=== PATIENT | female | born 1935 | race African-American/Black ===

== ENCOUNTER 2017-03-20 06:43 | Day surgery (SDC) | payer MEDICARE, MEDICAID ==
[~2017-03-20] VITALS: Ht 152.4 cm; Wt 72.7 kg
[~2017-03-20 06:43] MED LIST: ASPI-996 PO; ATOR40TA71 PO; BUPIVACAINE HCL/PF 0.75% 10 ML VIAL INJ ONE; CARV6 PO; CHOL20002 PO; DICLOFENAC SODIUM 0.1% 2.5 ML OPHTHALMIC SOLUTION OD ONE; DICLOFENAC SODIUM 0.1% 2.5 ML OPHTHALMIC SOLUTION ONE; DOCU250C91 PO; EPINEPHrine 1:1,000 [1 MG/ML] AMP IM ONE; ESMOLOL HCL 10 MG/ML 10 ML VIAL IVP ONE; FERR142T6 PO; FentaNYL CITRATE-PF 100 MCG/2 ML VIAL IVP ONE; GABA-531 PO; HYALURONATE SOD/CHONDROITIN SOD 0.5 ML VIAL IO ONE; HYALURONATE SODIUM 12 MG/ML 0.8 ML SYRINGE IO ONE; LABETALOL HCL 5 MG/ML 20 ML VIAL IVP ONE; LIDOCAINE HCL/PF 1% 2 ML VIAL INJ ONE; METO-323 PO; MIDAZOLAM HCL 2 MG/2 ML VIAL IVP ONE; MONT10TA21 PO; MOXIFLOXACIN HCL 0.5% 3 ML OPHTHALMIC SOLUTION OD ONE; MOXIFLOXACIN HCL 0.5% 3 ML OPHTHALMIC SOLUTION ONE; MULT1TAB70 PO; OXYC-158 PO; PANT40TA25 PO; PHENYLEPHRINE HCL 2.5% 2 ML OPHTHALMIC SOLUTION OD SCH; PHENYLEPHRINE HCL 2.5% 2 ML OPHTHALMIC SOLUTION ONE; POLY17PO6 PO; POVIDONE-IODINE 10% 15 ML SOLUTION UD TP ONE; RINGERS SOLUTION,LACTATED 500 ML IV ONE; SENN-30 PO; SPIR25TA4 PO; TRAM50TA4 PO; TROPICAMIDE 1% 2 ML OPHTHALMIC SOLUTION OD SCH; TROPICAMIDE 1% 2 ML OPHTHALMIC SOLUTION ONE; VALS160T2 PO
[2017-03-20] MEDS ORDERED: CYCLOPENTOLATE HCL 1% 2 ML OPHTHALMIC SOLUTION ONE (07:42)
[2017-03-20] MEDS ORDERED: PrednisoLONE ACETATE 1% 5 ML OPHTHALMIC SUSPENSION ONE (07:42)
[2017-03-20] MEDS ORDERED: PROPARACAINE HCL 0.5% 15 ML OPHTHALMIC SOLUTION OD ONE (07:45)
[2017-03-20] MEDS: MOXIFLOXACIN HCL 0.5% 3 ML OPHTHALMIC SOLUTION OD SCH ×3 (07:50→08:02)
[2017-03-20] MEDS: KETOROLAC TROMETHAMINE 0.5% 5 ML OPHTHALMIC SOLUTION OD SCH ×3 (07:50→08:02)
[2017-03-20] MEDS: CYCLOPENTOLATE HCL 1% 2 ML OPHTHALMIC SOLUTION OD SCH ×3 (07:51→08:02)
[2017-03-20] MEDS: PHENYLEPHRINE HCL 2.5% 2 ML OPHTHALMIC SOLUTION OD SCH ×3 (07:51→08:03)
[2017-03-20] MEDS: PrednisoLONE ACETATE 1% 5 ML OPHTHALMIC SUSPENSION OD SCH ×3 (07:57→08:07)
== END 2017-03-20 11:15 | disposition home or self-care (01) ==
LOC: SURGERY 06:43
PROVIDERS: ATTEND Ophthalmology
DX: H26.20 Unspecified complicated cataract (principal); M19.90 Unspecified osteoarthritis, unspecified site; I50.9 Heart failure, unspecified; J45.909 Unspecified asthma, uncomplicated; H40.9 Unspecified glaucoma; M54.9 Dorsalgia, unspecified; K59.00 Constipation, unspecified; I10 Essential (primary) hypertension; G89.29 Other chronic pain; F32.9 Major depressive disorder, single episode, unspecified; M54.2 Cervicalgia; E66.3 Overweight; Z88.0 Allergy status to penicillin; Z88.2 Allergy status to sulfonamides; Z88.1 Allergy status to other antibiotic agents; Z90.710 Acquired absence of both cervix and uterus; Z87.891 Personal history of nicotine dependence
CPT/HCPCS: 66982; 93005; C1780; J0171; J2250; J3010; J3490 ×5; J7120

== ENCOUNTER 2018-07-10 18:00 | Inpatient (IN) | payer MEDICARE, MEDICAID ==
[~2018-07-10] VITALS: Ht 152.4 cm; Wt 68.0 kg
[~2018-07-10 18:00] MED LIST changes: -ASPI-996 PO; +ASPI81 PO; -BUPIVACAINE HCL/PF 0.75% 10 ML VIAL INJ ONE; +BUSP5TAB20 PO; +CARV3 PO; -CARV6 PO; -CHOL20002 PO; +DICL2100G TP; -DICLOFENAC SODIUM 0.1% 2.5 ML OPHTHALMIC SOLUTION OD ONE; -DICLOFENAC SODIUM 0.1% 2.5 ML OPHTHALMIC SOLUTION ONE; -DOCU250C91 PO; -EPINEPHrine 1:1,000 [1 MG/ML] AMP IM ONE; +ESCI20TA PO; -ESMOLOL HCL 10 MG/ML 10 ML VIAL IVP ONE; -FERR142T6 PO; +FURO40 PO; -FentaNYL CITRATE-PF 100 MCG/2 ML VIAL IVP ONE; -GABA-531 PO; +GUAIFDM PO; -HYALURONATE SOD/CHONDROITIN SOD 0.5 ML VIAL IO ONE; -HYALURONATE SODIUM 12 MG/ML 0.8 ML SYRINGE IO ONE; +HYDR-309 PO; -LABETALOL HCL 5 MG/ML 20 ML VIAL IVP ONE; +LACT30L PO; -LIDOCAINE HCL/PF 1% 2 ML VIAL INJ ONE; +LORA10TA7 PO; +LOSA50TA25 PO; -METO-323 PO; -MIDAZOLAM HCL 2 MG/2 ML VIAL IVP ONE; -MONT10TA21 PO; -MOXIFLOXACIN HCL 0.5% 3 ML OPHTHALMIC SOLUTION OD ONE; -MOXIFLOXACIN HCL 0.5% 3 ML OPHTHALMIC SOLUTION ONE; -MULT1TAB70 PO; -OXYC-158 PO; -PANT40TA25 PO; -PHENYLEPHRINE HCL 2.5% 2 ML OPHTHALMIC SOLUTION OD SCH; -PHENYLEPHRINE HCL 2.5% 2 ML OPHTHALMIC SOLUTION ONE; -POLY17PO6 PO; -POVIDONE-IODINE 10% 15 ML SOLUTION UD TP ONE; -RINGERS SOLUTION,LACTATED 500 ML IV ONE; +SENN-175 PO; -SENN-30 PO; -SPIR25TA4 PO; +SPIR25TA6 PO; -TRAM50TA4 PO; -TROPICAMIDE 1% 2 ML OPHTHALMIC SOLUTION OD SCH; -TROPICAMIDE 1% 2 ML OPHTHALMIC SOLUTION ONE; -VALS160T2 PO
[2018-07-10 18:30] VITALS: BP 168/97
[2018-07-10] MEDS ORDERED: ONDANSETRON HCL 4 MG TABLET PO PRN (19:45)
[2018-07-10] MEDS ORDERED: SODIUM CHLORIDE 0.9% 250 ML IV ONE (20:05)
[2018-07-10] MEDS: IPRATROPIUM BROMIDE 0.5 MG/2.5 ML NEB SOLUTION NEB SCH (20:17)
[2018-07-10] MEDS: ALBUTEROL SULFATE 2.5 MG/0.5 ML NEB SOLUTION NEB SCH (20:17)
[2018-07-10] MEDS ORDERED: DOCUSATE SODIUM 100 MG CAPSULE PO SCH (21:00)
[2018-07-10] MEDS: LEVOFLOXACIN 250 MG/D5% WATER 50 ML IV SCH (21:05)
[2018-07-10] MEDS: ACETAMINOPHEN 325 MG TABLET PO PRN (21:06)
[2018-07-10] MEDS: ATORVASTATIN CALCIUM 40 MG TABLET PO SCH (21:06)
[2018-07-10] MEDS: MONTELUKAST SODIUM 10 MG TABLET PO SCH (21:06)
[2018-07-10] MEDS: CARVEDILOL 6.25 MG TABLET PO SCH (21:07)
[2018-07-10] MEDS: DOCUSATE SODIUM 250 MG CAPSULE PO SCH (21:07)
[2018-07-10 22:45] VITALS: BP 147/97
[2018-07-10] MEDS: ZOLPIDEM TARTRATE 5 MG TABLET PO PRN (23:32)
[2018-07-10] MEDS: 0.9% SODIUM CHLORIDE 10 ML SYRINGE IVP SCH (23:34)
[2018-07-10] MEDS ORDERED: PNEUMOCOCCAL VACCINE POLYVALENT 0.5 ML VIAL [PPSV23] IM ONE (23:45)
[2018-07-10 23:46] VITALS: BP 141/98
[2018-07-11] MEDS: ALBUTEROL SULFATE 2.5 MG/0.5 ML NEB SOLUTION NEB SCH ×4 (01:46→19:45)
[2018-07-11] MEDS: IPRATROPIUM BROMIDE 0.5 MG/2.5 ML NEB SOLUTION NEB SCH ×4 (01:46→19:45)
[2018-07-11] MEDS: DOCUSATE SODIUM 283 MG/5 ML MINI-ENEMA PR PRN (05:12)
[2018-07-11] MEDS: PANTOPRAZOLE SODIUM 40 MG DR TABLET PO SCH (07:54)
[2018-07-11 08:12] VITALS: BP 179/92
[2018-07-11] MEDS: POTASSIUM CHLORIDE 20 MEQ ER TABLET PO SCH (08:12)
[2018-07-11] MEDS: SPIRONOLACTONE 25 MG TABLET PO SCH (08:12)
[2018-07-11] MEDS: TraMADol HCL 50 MG TABLET PO SCH (08:12)
[2018-07-11] MEDS: VALSARTAN 160 MG TABLET PO SCH (08:12)
[2018-07-11] MEDS: ASPIRIN 325 MG EC TABLET PO SCH (08:13)
[2018-07-11] MEDS: DOCUSATE SODIUM 250 MG CAPSULE PO SCH ×2 (08:13→20:44)
[2018-07-11] MEDS: CARVEDILOL 6.25 MG TABLET PO SCH ×2 (08:13→20:44)
[2018-07-11] MEDS: FERROUS SULFATE 325 MG EC TABLET PO SCH (08:13)
[2018-07-11 08:34] LABS: BASOPHILS % (AUTO) 0.7 % (0.0-2.0); EOSINOPHILS % (AUTO) 8.2 % (1.0-6.0); HEMATOCRIT 39.5 % (36-46); HEMOGLOBIN 12.7 g/dL (12.0-16.0); LYMPHOCYTES # (AUTO) 0.9 K/uL (1.0-4.8); LYMPHOCYTES % (AUTO) 10.7 % (22.0-44.0); MEAN CORPUSCULAR HEMOGLOBIN 26.7 pg (26.0-34.0); MEAN CORPUSCULAR HGB CONC 32.1 G/dL (31.0-37.0); MEAN CORPUSCULAR VOLUME 83 fL (80-100); MONOCYTES # (AUTO) 0.7 K/uL (0.1-1.0); MONOCYTES % (AUTO) 9.3 % (2.0-9.0); NEUTROPHILS # (AUTO) 5.7 K/uL (1.8-7.7); NEUTROPHILS % (AUTO) 71.1 % (40.0-70.0); PLATELET COUNT (AUTO) 102 K/uL (150-450); RED BLOOD CELL COUNT(AUTO) 4.75 MIL/uL (4.00-5.20)
[2018-07-11 08:48] LABS: ALANINE AMINOTRANSFERASE 19 U/L (12-78); ALBUMIN 2.6 g/dL (3.4-5.0); ALKALINE PHOSPHATASE 91 U/L (46-116); ANION GAP 3 mmol/L (8-16); ASPARTATE AMINOTRANSFERASE 20 U/L (15-37); BILIRUBIN,TOTAL 0.5 mg/dL (0.1-1.0); CARBON DIOXIDE 34 mmol/L (22-29); CHLORIDE 103 mmol/L (98-107); CREATININE 0.93 mg/dL (0.60-1.30); GLUCOSE,RANDOM 140 mg/dL (70-110); POTASSIUM 4.1 mmol/L (3.5-5.1); SODIUM SERUM 140 mmol/L (136-145); TOTAL PROTEIN, SERUM 6.4 g/dL (6.4-8.2); UREA NITROGEN, BLOOD 24 mg/dL (7-18)
[2018-07-11 08:52] LABS: GLOMERULAR FILTR. RATE CALC > 60 mL/min (>60)
[2018-07-11] MEDS ORDERED: TraMADol HCL 50 MG TABLET PO SCH (09:00)
[2018-07-11] MEDS ORDERED: CHOLECALCIFEROL (VIT D3) 1,000 UNITS TABLET PO SCH (09:00)
[2018-07-11] MEDS: 0.9% SODIUM CHLORIDE 10 ML SYRINGE IVP SCH ×3 (09:12→23:45)
[2018-07-11 11:00] VITALS: BP 147/86
[2018-07-11] MEDS ORDERED: MAGNESIUM CITRATE 300 ML ORAL SOLUTION PO ONE (12:45)
[2018-07-11] MEDS: CHOLECALCIFEROL (VIT D3) 1,000 UNITS TABLET PO SCH (13:03)
[2018-07-11] MEDS: DICLOFENAC SODIUM 1% 100 GM GEL [4GM] TP SCH ×2 (14:19→20:44)
[2018-07-11 15:14] VITALS: BP 142/75
[2018-07-11 17:28] LABS: APPEARANCE,URINE CLOUDY (CLEAR); BILIRUBIN,URINE NEGATIVE (NEGATIVE); GLUCOSE, URINE (UA) NEGATIVE (NEGATIVE); KETONES,URINE NEGATIVE (NEGATIVE); LEUKOCYTE ESTERASE ,URINE NEGATIVE (NEGATIVE); NITRATE,URINE NEGATIVE (NEGATIVE); OCCULT BLOOD,URINE NEGATIVE (NEGATIVE); PH,URINE 5.5 (5.0-8.0); PROTEIN,URINE NEGATIVE (NEGATIVE); UROBILINOGEN,URINE 0.2 mg/dL (<=1.0)
[2018-07-11 18:07] LABS: BACTERIA,URINE Few /HPF (None Seen); RBC,URINE 0-2 /HPF (0-2); WBC,URINE None Seen /HPF (0-5)
[2018-07-11 18:08] LABS: SQUAMOUS EPITHELIAL CELL,UR Few /LPF (None Seen)
[2018-07-11] MEDS: LEVOFLOXACIN 250 MG/D5% WATER 50 ML IV SCH (19:12)
[2018-07-11 20:40] VITALS: BP 132/85
[2018-07-11] MEDS: SENNA 187 MG TABLET PO SCH (20:44)
[2018-07-11] MEDS: ATORVASTATIN CALCIUM 40 MG TABLET PO SCH (20:44)
[2018-07-11] MEDS: MONTELUKAST SODIUM 10 MG TABLET PO SCH (20:44)
[2018-07-12 01:13] VITALS: BP 130/77
[2018-07-12] MEDS: ALBUTEROL SULFATE 2.5 MG/0.5 ML NEB SOLUTION NEB SCH ×4 (01:36→20:12)
[2018-07-12] MEDS: IPRATROPIUM BROMIDE 0.5 MG/2.5 ML NEB SOLUTION NEB SCH ×4 (01:36→20:12)
[2018-07-12] MEDS: PANTOPRAZOLE SODIUM 40 MG DR TABLET PO SCH (05:37)
[2018-07-12] MEDS: DOCUSATE SODIUM 283 MG/5 ML MINI-ENEMA PR PRN (05:37)
[2018-07-12] MEDS: SPIRONOLACTONE 25 MG TABLET PO SCH (08:52)
[2018-07-12] MEDS: CARVEDILOL 6.25 MG TABLET PO SCH ×2 (08:52→20:40)
[2018-07-12] MEDS: FERROUS SULFATE 325 MG EC TABLET PO SCH (08:52)
[2018-07-12] MEDS: VALSARTAN 160 MG TABLET PO SCH (08:52)
[2018-07-12] MEDS: TraMADol HCL 50 MG TABLET PO SCH (08:52)
[2018-07-12] MEDS: POTASSIUM CHLORIDE 20 MEQ ER TABLET PO SCH (08:52)
[2018-07-12] MEDS: DICLOFENAC SODIUM 1% 100 GM GEL [4GM] TP SCH ×2 (08:52→20:40)
[2018-07-12] MEDS: ASPIRIN 325 MG EC TABLET PO SCH (08:52)
[2018-07-12] MEDS: DOCUSATE SODIUM 250 MG CAPSULE PO SCH ×2 (08:52→20:40)
[2018-07-12] MEDS: 0.9% SODIUM CHLORIDE 10 ML SYRINGE IVP SCH ×2 (08:52→16:08)
[2018-07-12 09:00] VITALS: BP 150/84
[2018-07-12] MEDS: CHOLECALCIFEROL (VIT D3) 1,000 UNITS TABLET PO SCH (11:34)
[2018-07-12] MEDS: LUBIPROSTONE 24 MCG CAPSULE PO SCH ×2 (12:44→20:40)
[2018-07-12 15:35] VITALS: BP 103/70
[2018-07-12] MEDS ORDERED: MAGNESIUM CITRATE 300 ML ORAL SOLUTION PO ONE (16:00)
[2018-07-12] MEDS: LEVOFLOXACIN 250 MG/D5% WATER 50 ML IV SCH (19:16)
[2018-07-12 20:05] VITALS: BP 111/72
[2018-07-12] MEDS: ATORVASTATIN CALCIUM 40 MG TABLET PO SCH (20:40)
[2018-07-12] MEDS: MONTELUKAST SODIUM 10 MG TABLET PO SCH (20:40)
[2018-07-12] MEDS: SENNA 187 MG TABLET PO SCH (20:40)
[2018-07-13] MEDS: 0.9% SODIUM CHLORIDE 10 ML SYRINGE IVP SCH ×3 (00:01→16:29)
[2018-07-13 00:23] VITALS: BP 128/78
[2018-07-13] MEDS: IPRATROPIUM BROMIDE 0.5 MG/2.5 ML NEB SOLUTION NEB SCH ×4 (02:18→21:15)
[2018-07-13] MEDS: ALBUTEROL SULFATE 2.5 MG/0.5 ML NEB SOLUTION NEB SCH ×4 (02:18→21:15)
[2018-07-13 07:46] VITALS: BP 137/90
[2018-07-13] MEDS: FERROUS SULFATE 325 MG EC TABLET PO SCH (07:57)
[2018-07-13] MEDS: PANTOPRAZOLE SODIUM 40 MG DR TABLET PO SCH (07:57)
[2018-07-13] MEDS: TraMADol HCL 50 MG TABLET PO SCH (07:57)
[2018-07-13] MEDS: SPIRONOLACTONE 25 MG TABLET PO SCH (07:58)
[2018-07-13] MEDS: DICLOFENAC SODIUM 1% 100 GM GEL [4GM] TP SCH ×2 (07:58→20:24)
[2018-07-13] MEDS: VALSARTAN 160 MG TABLET PO SCH (07:58)
[2018-07-13] MEDS: POTASSIUM CHLORIDE 20 MEQ ER TABLET PO SCH (07:58)
[2018-07-13] MEDS: LUBIPROSTONE 24 MCG CAPSULE PO SCH ×2 (07:58→20:24)
[2018-07-13] MEDS: ASPIRIN 325 MG EC TABLET PO SCH (07:58)
[2018-07-13] MEDS: CARVEDILOL 6.25 MG TABLET PO SCH ×2 (07:58→20:24)
[2018-07-13] MEDS: DOCUSATE SODIUM 250 MG CAPSULE PO SCH ×2 (07:59→20:24)
[2018-07-13 09:00] VITALS: BP 137/90
[2018-07-13] MEDS: CHOLECALCIFEROL (VIT D3) 1,000 UNITS TABLET PO SCH (12:25)
[2018-07-13 17:00] VITALS: BP 101/67
[2018-07-13] MEDS: LEVOFLOXACIN 250 MG/D5% WATER 50 ML IV SCH (19:45)
[2018-07-13 20:23] VITALS: BP 139/76
[2018-07-13] MEDS: SENNA 187 MG TABLET PO SCH (20:23)
[2018-07-13] MEDS: MONTELUKAST SODIUM 10 MG TABLET PO SCH (20:24)
[2018-07-13] MEDS: ATORVASTATIN CALCIUM 40 MG TABLET PO SCH (20:24)
[2018-07-13] MEDS: ZOLPIDEM TARTRATE 5 MG TABLET PO PRN (22:39)
[2018-07-13 23:07] VITALS: BP 137/79
[2018-07-14] MEDS: 0.9% SODIUM CHLORIDE 10 ML SYRINGE IVP SCH ×3 (00:39→16:00)
[2018-07-14] MEDS: IPRATROPIUM BROMIDE 0.5 MG/2.5 ML NEB SOLUTION NEB SCH ×4 (02:27→20:27)
[2018-07-14] MEDS: ALBUTEROL SULFATE 2.5 MG/0.5 ML NEB SOLUTION NEB SCH ×4 (02:27→20:27)
[2018-07-14 07:00] VITALS: BP 137/77
[2018-07-14] MEDS: TraMADol HCL 50 MG TABLET PO SCH (08:01)
[2018-07-14] MEDS: DOCUSATE SODIUM 250 MG CAPSULE PO SCH ×2 (08:01→20:22)
[2018-07-14] MEDS: LUBIPROSTONE 24 MCG CAPSULE PO SCH ×2 (08:02→20:22)
[2018-07-14] MEDS: POTASSIUM CHLORIDE 20 MEQ ER TABLET PO SCH (08:02)
[2018-07-14] MEDS: DICLOFENAC SODIUM 1% 100 GM GEL [4GM] TP SCH ×2 (08:03→20:23)
[2018-07-14] MEDS: VALSARTAN 160 MG TABLET PO SCH (08:03)
[2018-07-14] MEDS: ASPIRIN 325 MG EC TABLET PO SCH (08:03)
[2018-07-14] MEDS: FERROUS SULFATE 325 MG EC TABLET PO SCH (08:03)
[2018-07-14] MEDS: CARVEDILOL 6.25 MG TABLET PO SCH ×2 (08:03→20:24)
[2018-07-14] MEDS: SPIRONOLACTONE 25 MG TABLET PO SCH (08:03)
[2018-07-14] MEDS: PANTOPRAZOLE SODIUM 40 MG DR TABLET PO SCH (08:03)
[2018-07-14] MEDS: CHOLECALCIFEROL (VIT D3) 1,000 UNITS TABLET PO SCH (13:06)
[2018-07-14] MEDS ORDERED: HYDROCODONE/ACETAMINOPHEN 5-325 MG TABLET PO PRN (14:45)
[2018-07-14 15:40] VITALS: BP 100/68
[2018-07-14] MEDS: HEPARIN SODIUM,PORCINE 5,000 UNITS/ML VIAL SQ SCH ×2 (16:15→20:23)
[2018-07-14 18:13] LABS: GLUCOMETER DEV NAME(LOC) 2WR 2E; GLUCOSE,POINT OF CARE 170 MG/DL (70-110)
[2018-07-14 20:03] VITALS: BP 110/65
[2018-07-14] MEDS: SENNA 187 MG TABLET PO SCH (20:22)
[2018-07-14] MEDS: MONTELUKAST SODIUM 10 MG TABLET PO SCH (20:22)
[2018-07-14] MEDS: ATORVASTATIN CALCIUM 40 MG TABLET PO SCH (20:23)
[2018-07-14] MEDS: LEVOFLOXACIN 250 MG/D5% WATER 50 ML IV SCH (22:39)
[2018-07-15] VITALS: BP 136/70
[2018-07-15] MEDS: 0.9% SODIUM CHLORIDE 10 ML SYRINGE IVP SCH ×4 (00:24→22:59)
[2018-07-15] MEDS: IPRATROPIUM BROMIDE 0.5 MG/2.5 ML NEB SOLUTION NEB SCH ×4 (03:04→20:07)
[2018-07-15] MEDS: ALBUTEROL SULFATE 2.5 MG/0.5 ML NEB SOLUTION NEB SCH ×4 (03:04→20:07)
[2018-07-15] MEDS: PANTOPRAZOLE SODIUM 40 MG DR TABLET PO SCH (05:45)
[2018-07-15 08:00] VITALS: BP 115/78
[2018-07-15] MEDS: FERROUS SULFATE 325 MG EC TABLET PO SCH (08:45)
[2018-07-15] MEDS: ASPIRIN 325 MG EC TABLET PO SCH (08:46)
[2018-07-15] MEDS: DOCUSATE SODIUM 250 MG CAPSULE PO SCH ×2 (08:46→20:01)
[2018-07-15] MEDS: VALSARTAN 160 MG TABLET PO SCH (08:46)
[2018-07-15] MEDS: SPIRONOLACTONE 25 MG TABLET PO SCH (08:46)
[2018-07-15] MEDS: TraMADol HCL 50 MG TABLET PO SCH (08:47)
[2018-07-15] MEDS: DICLOFENAC SODIUM 1% 100 GM GEL [4GM] TP SCH ×2 (08:47→20:03)
[2018-07-15] MEDS: LUBIPROSTONE 24 MCG CAPSULE PO SCH ×2 (08:47→20:03)
[2018-07-15] MEDS: CARVEDILOL 6.25 MG TABLET PO SCH ×2 (08:48→20:02)
[2018-07-15] MEDS: POTASSIUM CHLORIDE 20 MEQ ER TABLET PO SCH (08:48)
[2018-07-15] MEDS: HEPARIN SODIUM,PORCINE 5,000 UNITS/ML VIAL SQ SCH ×2 (08:51→20:02)
[2018-07-15] MEDS: CHOLECALCIFEROL (VIT D3) 1,000 UNITS TABLET PO SCH (12:42)
[2018-07-15 16:05] VITALS: BP 137/58
[2018-07-15] MEDS ORDERED: SODIUM CHLORIDE 0.9% 250 ML IV ONE (19:55)
[2018-07-15] MEDS: LEVOFLOXACIN 250 MG/D5% WATER 50 ML IV SCH (20:01)
[2018-07-15] MEDS: MONTELUKAST SODIUM 10 MG TABLET PO SCH (20:02)
[2018-07-15] MEDS: ATORVASTATIN CALCIUM 40 MG TABLET PO SCH (20:03)
[2018-07-15] MEDS: SENNA 187 MG TABLET PO SCH (20:03)
[2018-07-15] MEDS: ZOLPIDEM TARTRATE 5 MG TABLET PO PRN (23:07)
[2018-07-16 00:12] VITALS: BP 108/62
[2018-07-16] MEDS: ALBUTEROL SULFATE 2.5 MG/0.5 ML NEB SOLUTION NEB SCH ×4 (02:17→20:02)
[2018-07-16] MEDS: IPRATROPIUM BROMIDE 0.5 MG/2.5 ML NEB SOLUTION NEB SCH ×4 (02:17→20:02)
[2018-07-16] MEDS: DOCUSATE SODIUM 283 MG/5 ML MINI-ENEMA PR PRN (05:38)
[2018-07-16] MEDS: PANTOPRAZOLE SODIUM 40 MG DR TABLET PO SCH (05:38)
[2018-07-16 07:53] VITALS: BP 129/77
[2018-07-16] MEDS: SPIRONOLACTONE 25 MG TABLET PO SCH (08:03)
[2018-07-16] MEDS: TraMADol HCL 50 MG TABLET PO SCH (08:03)
[2018-07-16] MEDS: VALSARTAN 160 MG TABLET PO SCH (08:03)
[2018-07-16] MEDS: LUBIPROSTONE 24 MCG CAPSULE PO SCH ×2 (08:03→20:30)
[2018-07-16] MEDS: FERROUS SULFATE 325 MG EC TABLET PO SCH (08:04)
[2018-07-16] MEDS: ASPIRIN 325 MG EC TABLET PO SCH (08:04)
[2018-07-16] MEDS: CARVEDILOL 6.25 MG TABLET PO SCH ×2 (08:04→20:31)
[2018-07-16] MEDS: DOCUSATE SODIUM 250 MG CAPSULE PO SCH ×2 (08:04→20:31)
[2018-07-16] MEDS: POTASSIUM CHLORIDE 20 MEQ ER TABLET PO SCH (08:04)
[2018-07-16] MEDS: HEPARIN SODIUM,PORCINE 5,000 UNITS/ML VIAL SQ SCH ×2 (08:04→20:31)
[2018-07-16] MEDS: DICLOFENAC SODIUM 1% 100 GM GEL [4GM] TP SCH ×2 (08:05→20:31)
[2018-07-16] MEDS: 0.9% SODIUM CHLORIDE 10 ML SYRINGE IVP SCH ×2 (08:05→16:01)
[2018-07-16] MEDS: ALPRAZolam 0.25 MG TABLET PO PRN (10:16)
[2018-07-16] MEDS: CHOLECALCIFEROL (VIT D3) 1,000 UNITS TABLET PO SCH (12:32)
[2018-07-16 15:57] VITALS: BP 118/97
[2018-07-16] MEDS ORDERED: SODIUM CHLORIDE 0.9% 250 ML IV ONE (20:22)
[2018-07-16 20:29] VITALS: BP 111/63
[2018-07-16] MEDS: LEVOFLOXACIN 250 MG/D5% WATER 50 ML IV SCH (20:30)
[2018-07-16] MEDS: ATORVASTATIN CALCIUM 40 MG TABLET PO SCH (20:30)
[2018-07-16] MEDS: SENNA 187 MG TABLET PO SCH (20:30)
[2018-07-16] MEDS: MONTELUKAST SODIUM 10 MG TABLET PO SCH (20:31)
[2018-07-16] MEDS: ZOLPIDEM TARTRATE 5 MG TABLET PO PRN (22:08)
[2018-07-17 01:11] VITALS: BP 115/83
[2018-07-17] MEDS: ALBUTEROL SULFATE 2.5 MG/0.5 ML NEB SOLUTION NEB SCH ×4 (02:09→19:22)
[2018-07-17] MEDS: IPRATROPIUM BROMIDE 0.5 MG/2.5 ML NEB SOLUTION NEB SCH ×4 (02:10→19:23)
[2018-07-17] MEDS: ACETAMINOPHEN 325 MG TABLET PO PRN (04:43)
[2018-07-17] MEDS: PANTOPRAZOLE SODIUM 40 MG DR TABLET PO SCH (06:09)
[2018-07-17] MEDS: DOCUSATE SODIUM 283 MG/5 ML MINI-ENEMA PR PRN (06:09)
[2018-07-17 07:15] VITALS: BP 111/66
[2018-07-17] MEDS: CARVEDILOL 6.25 MG TABLET PO SCH ×2 (08:07→20:33)
[2018-07-17] MEDS: ASPIRIN 325 MG EC TABLET PO SCH (08:07)
[2018-07-17] MEDS: LUBIPROSTONE 24 MCG CAPSULE PO SCH ×2 (08:07→20:33)
[2018-07-17] MEDS: SPIRONOLACTONE 25 MG TABLET PO SCH (08:07)
[2018-07-17] MEDS: FERROUS SULFATE 325 MG EC TABLET PO SCH (08:07)
[2018-07-17] MEDS: TraMADol HCL 50 MG TABLET PO SCH (08:07)
[2018-07-17] MEDS: VALSARTAN 160 MG TABLET PO SCH (08:07)
[2018-07-17] MEDS: DOCUSATE SODIUM 250 MG CAPSULE PO SCH ×2 (08:07→20:33)
[2018-07-17] MEDS: DICLOFENAC SODIUM 1% 100 GM GEL [4GM] TP SCH ×2 (08:08→20:36)
[2018-07-17] MEDS: HEPARIN SODIUM,PORCINE 5,000 UNITS/ML VIAL SQ SCH ×2 (08:08→20:34)
[2018-07-17] MEDS: POTASSIUM CHLORIDE 20 MEQ ER TABLET PO SCH (08:08)
[2018-07-17] MEDS: ALPRAZolam 0.25 MG TABLET PO PRN (08:37)
[2018-07-17] MEDS ORDERED: MAGNESIUM CITRATE 300 ML ORAL SOLUTION PO ONE (10:00)
[2018-07-17] MEDS: CHOLECALCIFEROL (VIT D3) 1,000 UNITS TABLET PO SCH (12:45)
[2018-07-17 15:30] VITALS: BP 104/63
[2018-07-17 16:17] VITALS: BP 104/63
[2018-07-17] MEDS: MONTELUKAST SODIUM 10 MG TABLET PO SCH (20:33)
[2018-07-17] MEDS: SENNA 187 MG TABLET PO SCH (20:33)
[2018-07-17] MEDS: ATORVASTATIN CALCIUM 40 MG TABLET PO SCH (20:33)
[2018-07-17 20:35] VITALS: BP 119/62
[2018-07-18 00:57] VITALS: BP 141/89
[2018-07-18] MEDS: ALBUTEROL SULFATE 2.5 MG/0.5 ML NEB SOLUTION NEB SCH ×4 (02:00→20:47)
[2018-07-18] MEDS: IPRATROPIUM BROMIDE 0.5 MG/2.5 ML NEB SOLUTION NEB SCH ×4 (02:00→20:47)
[2018-07-18] MEDS: DOCUSATE SODIUM 283 MG/5 ML MINI-ENEMA PR PRN (05:42)
[2018-07-18] MEDS: PANTOPRAZOLE SODIUM 40 MG DR TABLET PO SCH (05:42)
[2018-07-18 07:15] VITALS: BP 124/74
[2018-07-18] MEDS: VALSARTAN 160 MG TABLET PO SCH (08:00)
[2018-07-18] MEDS: LUBIPROSTONE 24 MCG CAPSULE PO SCH ×2 (08:00→21:06)
[2018-07-18] MEDS: CARVEDILOL 6.25 MG TABLET PO SCH ×2 (08:00→21:06)
[2018-07-18] MEDS: HEPARIN SODIUM,PORCINE 5,000 UNITS/ML VIAL SQ SCH ×2 (08:00→21:12)
[2018-07-18] MEDS: SPIRONOLACTONE 25 MG TABLET PO SCH (08:00)
[2018-07-18] MEDS: ASPIRIN 325 MG EC TABLET PO SCH (08:00)
[2018-07-18] MEDS: FERROUS SULFATE 325 MG EC TABLET PO SCH (08:01)
[2018-07-18] MEDS: DOCUSATE SODIUM 250 MG CAPSULE PO SCH ×2 (08:01→21:06)
[2018-07-18] MEDS: DICLOFENAC SODIUM 1% 100 GM GEL [4GM] TP SCH ×2 (08:01→21:06)
[2018-07-18] MEDS: TraMADol HCL 50 MG TABLET PO SCH (08:01)
[2018-07-18] MEDS: POTASSIUM CHLORIDE 20 MEQ ER TABLET PO SCH (08:02)
[2018-07-18] MEDS: LEVOFLOXACIN 500 MG TABLET PO SCH (13:06)
[2018-07-18] MEDS: CHOLECALCIFEROL (VIT D3) 1,000 UNITS TABLET PO SCH (13:06)
[2018-07-18 14:55] LABS: BASOPHILS % (AUTO) 1.3 % (0.0-2.0); EOSINOPHILS % (AUTO) 4.8 % (1.0-6.0); HEMATOCRIT 37.7 % (36-46); HEMOGLOBIN 11.9 g/dL (12.0-16.0); LYMPHOCYTES # (AUTO) 1.4 K/uL (1.0-4.8); LYMPHOCYTES % (AUTO) 13.9 % (22.0-44.0); MEAN CORPUSCULAR HEMOGLOBIN 26.5 pg (26.0-34.0); MEAN CORPUSCULAR HGB CONC 31.7 G/dL (31.0-37.0); MEAN CORPUSCULAR VOLUME 84 fL (80-100); MONOCYTES # (AUTO) 0.9 K/uL (0.1-1.0); MONOCYTES % (AUTO) 8.7 % (2.0-9.0); NEUTROPHILS % (AUTO) 71.3 % (40.0-70.0); PLATELET COUNT (AUTO) 235 K/uL (150-450); RED BLOOD CELL COUNT(AUTO) 4.51 MIL/uL (4.00-5.20); RED CELL DISTRIBUTION WIDTH 14.6 % (11.5-14.5)
[2018-07-18 16:18] VITALS: BP 105/52
[2018-07-18] MEDS: ATORVASTATIN CALCIUM 40 MG TABLET PO SCH (21:06)
[2018-07-18] MEDS: SENNA 187 MG TABLET PO SCH (21:06)
[2018-07-18] MEDS: MONTELUKAST SODIUM 10 MG TABLET PO SCH (21:06)
[2018-07-19 01:15] VITALS: BP 127/73
[2018-07-19] MEDS: IPRATROPIUM BROMIDE 0.5 MG/2.5 ML NEB SOLUTION NEB SCH ×3 (02:00→14:57)
[2018-07-19] MEDS: ALBUTEROL SULFATE 2.5 MG/0.5 ML NEB SOLUTION NEB SCH ×3 (02:00→14:57)
[2018-07-19] MEDS ORDERED: AUD NEB (03:04)
[2018-07-19] MEDS ORDERED: LUBI24CA2 PO (03:04)
[2018-07-19] MEDS ORDERED: ASPI-891 PO (03:04)
[2018-07-19] MEDS ORDERED: FERR-89 PO (03:04)
[2018-07-19] MEDS ORDERED: TRAM50TA4 PO (03:04)
[2018-07-19] MEDS ORDERED: CARV6 PO (03:04)
[2018-07-19] MEDS ORDERED: DICL4100G TP (03:04)
[2018-07-19] MEDS ORDERED: PANT40TA25 PO (03:04)
[2018-07-19] MEDS ORDERED: DOCU250C91 PO (03:04)
[2018-07-19] MEDS ORDERED: MONT10TA21 PO (03:04)
[2018-07-19] MEDS ORDERED: HEPA500018 SQ (03:04)
[2018-07-19] MEDS ORDERED: IPRNEB IH (03:04)
[2018-07-19] MEDS ORDERED: VITAD1000 PO (03:04)
[2018-07-19] MEDS ORDERED: LEVO500 PO (03:04)
[2018-07-19] MEDS ORDERED: VALS160T2 PO (03:04)
[2018-07-19] MEDS ORDERED: KDUR20 PO (03:04)
[2018-07-19] MEDS: ACETAMINOPHEN 325 MG TABLET PO PRN (05:18)
[2018-07-19] MEDS: PANTOPRAZOLE SODIUM 40 MG DR TABLET PO SCH (05:42)
[2018-07-19 08:00] VITALS: BP 140/100
[2018-07-19] MEDS: LEVOFLOXACIN 500 MG TABLET PO SCH (08:12)
[2018-07-19] MEDS: HEPARIN SODIUM,PORCINE 5,000 UNITS/ML VIAL SQ SCH (08:12)
[2018-07-19] MEDS: LUBIPROSTONE 24 MCG CAPSULE PO SCH (08:12)
[2018-07-19] MEDS: VALSARTAN 160 MG TABLET PO SCH (08:13)
[2018-07-19] MEDS: DOCUSATE SODIUM 250 MG CAPSULE PO SCH (08:13)
[2018-07-19] MEDS: TraMADol HCL 50 MG TABLET PO SCH (08:13)
[2018-07-19] MEDS: POTASSIUM CHLORIDE 20 MEQ ER TABLET PO SCH (08:13)
[2018-07-19] MEDS: FERROUS SULFATE 325 MG EC TABLET PO SCH (08:13)
[2018-07-19] MEDS: CARVEDILOL 6.25 MG TABLET PO SCH (08:14)
[2018-07-19] MEDS: SPIRONOLACTONE 25 MG TABLET PO SCH (08:14)
[2018-07-19] MEDS: DICLOFENAC SODIUM 1% 100 GM GEL [4GM] TP SCH (08:14)
[2018-07-19] MEDS: ASPIRIN 325 MG EC TABLET PO SCH (08:14)
[2018-07-19 10:07] LABS: BASOPHILS % (AUTO) 0.3 % (0.0-2.0); EOSINOPHILS % (AUTO) 5.5 % (1.0-6.0); HEMATOCRIT 37.8 % (36-46); HEMOGLOBIN 12.2 g/dL (12.0-16.0); LYMPHOCYTES # (AUTO) 1.6 K/uL (1.0-4.8); LYMPHOCYTES % (AUTO) 17.5 % (22.0-44.0); MEAN CORPUSCULAR HEMOGLOBIN 26.7 pg (26.0-34.0); MEAN CORPUSCULAR HGB CONC 32.2 G/dL (31.0-37.0); MEAN CORPUSCULAR VOLUME 83 fL (80-100); MONOCYTES # (AUTO) 0.8 K/uL (0.1-1.0); NEUTROPHILS # (AUTO) 6.2 K/uL (1.8-7.7); NEUTROPHILS % (AUTO) 67.7 % (40.0-70.0); PLATELET COUNT (AUTO) 234 K/uL (150-450); RED BLOOD CELL COUNT(AUTO) 4.56 MIL/uL (4.00-5.20); RED CELL DISTRIBUTION WIDTH 14.5 % (11.5-14.5)
[2018-07-19 10:32] LABS: CALCIUM, TOTAL 9.9 mg/dL (8.8-10.5); CREATININE 1.1 mg/dL (0.60-1.30)
[2018-07-19 12:28] LABS: FOLATE SERUM 9.8 ng/mL (5.4-)
[2018-07-19] MEDS: CHOLECALCIFEROL (VIT D3) 1,000 UNITS TABLET PO SCH (12:28)
== END 2018-07-19 15:30 | disposition home or self-care (01) | DRG 947 ==
LOC: 2WR 18:00
DX: R53.81 Other malaise (principal); J18.9 Pneumonia, unspecified organism; E43 Unspecified severe protein-calorie malnutrition; J44.0 Chronic obstructive pulmonary disease with (acute) lower respiratory infection; J98.11 Atelectasis; N39.0 Urinary tract infection, site not specified; E66.9 Obesity, unspecified; E78.00 Pure hypercholesterolemia, unspecified; F03.90 Unspecified dementia, unspecified severity, without behavioral disturbance, psychotic disturbance, mood disturbance, and anxiety; I11.0 Hypertensive heart disease with heart failure; I50.9 Heart failure, unspecified; K59.00 Constipation, unspecified; Z96.1 Presence of intraocular lens; E55.9 Vitamin D deficiency, unspecified; G47.00 Insomnia, unspecified; D53.9 Nutritional anemia, unspecified; E78.5 Hyperlipidemia, unspecified; F32.9 Major depressive disorder, single episode, unspecified; F41.9 Anxiety disorder, unspecified; H91.90 Unspecified hearing loss, unspecified ear; G89.29 Other chronic pain; M15.9 Polyosteoarthritis, unspecified; Z98.41 Cataract extraction status, right eye; Z88.1 Allergy status to other antibiotic agents; Z88.0 Allergy status to penicillin; Z88.2 Allergy status to sulfonamides; Z88.8 Allergy status to other drugs, medicaments and biological substances; Z68.29 Body mass index [BMI] 29.0-29.9, adult; Z82.49 Family history of ischemic heart disease and other diseases of the circulatory system
CPT/HCPCS: 82607; 82746; 83036; 87070; 87081; 87205; 92507; 92508; 92526; 92610; 94640; 97110; 97150; 97163; 97166; 97530; 97535; 99366; G0238; J1644; J1956; J7050; Q0162

== ENCOUNTER 2018-09-22 21:24 | Emergency (ER) | payer MEDICARE, MEDICAID ==
[~2018-09-22] VITALS: Ht 152.4 cm; Wt 68.0 kg
[~2018-09-22 21:24] MED LIST changes: +ASPI-891 PO; -ASPI81 PO; +AUD NEB; -BUSP5TAB20 PO; -CARV3 PO; +CARV6 PO; -DICL2100G TP; +DICL4100G TP; +DOCU250C91 PO; -ESCI20TA PO; +FERR-89 PO; -FURO40 PO; -GUAIFDM PO; +HEPA500018 SQ; -HYDR-309 PO; +IPRNEB IH; +KDUR20 PO; -LACT30L PO; +LEVO500 PO; -LORA10TA7 PO; -LOSA50TA25 PO; +LUBI24CA2 PO; +MONT10TA21 PO; +PANT40TA25 PO; -SENN-175 PO; +SENN-176 PO; +TRAM50TA4 PO; +VALS160T2 PO; +VITAD1000 PO
[2018-09-22 21:48] LABS: GLUCOSE,POINT OF CARE 145 MG/DL (70-110)
[2018-09-22 22:48] LABS: BASOPHILS % (AUTO) 0.9 % (0.0-2.0); EOSINOPHILS % (AUTO) 1.1 % (1.0-6.0); HEMATOCRIT 38.7 % (36-46); HEMOGLOBIN 12.7 g/dL (12.0-16.0); LYMPHOCYTES # (AUTO) 1.5 K/uL (1.0-4.8); LYMPHOCYTES % (AUTO) 12.8 % (22.0-44.0); MEAN CORPUSCULAR HEMOGLOBIN 26.6 pg (26.0-34.0); MEAN CORPUSCULAR HGB CONC 32.9 G/dL (31.0-37.0); MEAN CORPUSCULAR VOLUME 81 fL (80-100); MONOCYTES # (AUTO) 1.1 K/uL (0.1-1.0); NEUTROPHILS % (AUTO) 76.2 % (40.0-70.0); PLATELET COUNT (AUTO) 257 K/uL (150-450); RED BLOOD CELL COUNT(AUTO) 4.78 MIL/uL (4.00-5.20); RED CELL DISTRIBUTION WIDTH 13.8 % (11.5-14.5)
[2018-09-22 22:52] LABS: ANION GAP 4 mmol/L (8-16); CALCIUM, TOTAL 11.5 mg/dL (8.8-10.5); CARBON DIOXIDE 27 mmol/L (22-29); CHLORIDE 107 mmol/L (98-107); CREATININE 1.01 mg/dL (0.60-1.30); GLOMERULAR FILTR. RATE CALC > 60 mL/min (>60); GLUCOSE,RANDOM 151 mg/dL (70-110); POTASSIUM 4.9 mmol/L (3.5-5.1); SODIUM SERUM 138 mmol/L (136-145); UREA NITROGEN, BLOOD 30 mg/dL (7-18)
[2018-09-22 22:59] LABS: ALANINE AMINOTRANSFERASE 16 U/L (12-78); ALBUMIN 1.9 g/dL (3.4-5.0); ALKALINE PHOSPHATASE 72 U/L (46-116); ASPARTATE AMINOTRANSFERASE 17 U/L (15-37); BILIRUBIN,TOTAL 0.2 mg/dL (0.1-1.0); TOTAL PROTEIN, SERUM 7.4 g/dL (6.4-8.2)
[2018-09-22 23:16] LABS: B-TYPE NATRIURETIC PEPTIDE 95 pg/mL (0-100)
[2018-09-23 00:31] LABS: APPEARANCE,URINE CLEAR (CLEAR); BILIRUBIN,URINE NEGATIVE (NEGATIVE); GLUCOSE, URINE (UA) NEGATIVE (NEGATIVE); KETONES,URINE NEGATIVE (NEGATIVE); LEUKOCYTE ESTERASE ,URINE NEGATIVE (NEGATIVE); NITRATE,URINE NEGATIVE (NEGATIVE); OCCULT BLOOD,URINE NEGATIVE (NEGATIVE); PROTEIN,URINE NEGATIVE (NEGATIVE)
[2018-09-23] MEDS ORDERED: SODIUM CHLORIDE 0.9% 1,000 ML IV ONE ×2 (00:45)
[2018-09-23 02:50] VITALS: BP 128/73
[2018-09-23 03:12] LABS: GLUCOSE,POINT OF CARE 94 MG/DL (70-110)
== END 2018-09-23 03:41 | disposition home or self-care (01) ==
LOC: EMS 21:25
DX: E86.0 Dehydration (principal); E11.9 Type 2 diabetes mellitus without complications; I11.0 Hypertensive heart disease with heart failure; I50.9 Heart failure, unspecified; J44.9 Chronic obstructive pulmonary disease, unspecified; E78.00 Pure hypercholesterolemia, unspecified; F03.90 Unspecified dementia, unspecified severity, without behavioral disturbance, psychotic disturbance, mood disturbance, and anxiety; Z88.0 Allergy status to penicillin; Z88.2 Allergy status to sulfonamides; Z88.1 Allergy status to other antibiotic agents; Z88.8 Allergy status to other drugs, medicaments and biological substances; Z79.891 Long term (current) use of opiate analgesic; Z79.82 Long term (current) use of aspirin; Z79.899 Other long term (current) drug therapy; Z79.84 Long term (current) use of oral hypoglycemic drugs; Z79.2 Long term (current) use of antibiotics
CPT/HCPCS: 51701; 93005; 96360

== ENCOUNTER 2018-10-05 18:03 | Inpatient (IN) | payer MEDICARE, MEDICAID ==
[~2018-10-05] VITALS: Ht 165.1 cm; Wt 79.5 kg
[2018-10-05 20:17] LABS: BASOPHILS % (AUTO) 1.2 % (0.0-2.0); HEMATOCRIT 44.9 % (36-46); HEMOGLOBIN 14.4 g/dL (12.0-16.0); LYMPHOCYTES # (AUTO) 2.5 K/uL (1.0-4.8); LYMPHOCYTES % (AUTO) 23.6 % (22.0-44.0); MEAN CORPUSCULAR HEMOGLOBIN 26.3 pg (26.0-34.0); MEAN CORPUSCULAR VOLUME 82 fL (80-100); MONOCYTES # (AUTO) 0.9 K/uL (0.1-1.0); MONOCYTES % (AUTO) 8.6 % (2.0-9.0); NEUTROPHILS # (AUTO) 6.8 K/uL (1.8-7.7); NEUTROPHILS % (AUTO) 63.6 % (40.0-70.0); PLATELET COUNT (AUTO) 239 K/uL (150-450); RED BLOOD CELL COUNT(AUTO) 5.46 MIL/uL (4.00-5.20); RED CELL DISTRIBUTION WIDTH 13.7 % (11.5-14.5)
[2018-10-05 20:38] LABS: ALBUMIN 2.5 g/dL (3.4-5.0); BILIRUBIN,TOTAL 0.3 mg/dL (0.1-1.0); CREATININE 1.16 mg/dL (0.60-1.30); POTASSIUM 5.3 mmol/L (3.5-5.1); TOTAL PROTEIN, SERUM 8.1 g/dL (6.4-8.2)
[2018-10-05 20:43] LABS: CALCIUM, TOTAL 12.8 mg/dL (8.8-10.5)
[2018-10-05] MEDS ORDERED: SODIUM CHLORIDE 0.9% 1,000 ML IV ONE ×2 (21:00→23:00)
[2018-10-05 21:53] LABS: APPEARANCE,URINE CLEAR (CLEAR); BILIRUBIN,URINE NEGATIVE (NEGATIVE); GLUCOSE, URINE (UA) NEGATIVE (NEGATIVE); KETONES,URINE TRACE mg/dL (NEGATIVE); LEUKOCYTE ESTERASE ,URINE NEGATIVE (NEGATIVE); NITRATE,URINE NEGATIVE (NEGATIVE); OCCULT BLOOD,URINE NEGATIVE (NEGATIVE); PROTEIN,URINE NEGATIVE (NEGATIVE)
[2018-10-05] MEDS ORDERED: ONDANSETRON HCL 4 MG/2 ML VIAL IVP PRN ×2 (23:00)
[2018-10-05] MEDS ORDERED: SODIUM CHLORIDE 0.45% 1,000 ML IV ONE (23:00)
[2018-10-05] MEDS ORDERED: ACETAMINOPHEN 325 MG TABLET PO PRN (23:00)
[2018-10-05] MEDS ORDERED: IPRATROPIUM BROMIDE 0.5 MG/2.5 ML NEB SOLUTION NEB PRN (23:00)
[2018-10-05] MEDS ORDERED: BISACODYL 10 MG RECTAL RECTAL SUPPOSITORY PR PRN (23:00)
[2018-10-05] MEDS ORDERED: ALBUTEROL SULFATE 2.5 MG/0.5 ML NEB SOLUTION NEB PRN (23:00)
[2018-10-05] MEDS ORDERED: 0.9% SODIUM CHLORIDE 10 ML SYRINGE IVP PRN (23:00)
[2018-10-05] MEDS ORDERED: MAGNESIUM HYDROXIDE SUSPENSION 30 ML UDCUP PO PRN (23:00)
[2018-10-06 00:12] VITALS: BP 123/57
[2018-10-06] MEDS: HEPARIN SODIUM,PORCINE 5,000 UNITS/ML VIAL SQ SCH ×3 (01:09→23:08)
[2018-10-06 04:50] VITALS: BP 123/78
[2018-10-06 07:08] LABS: ALBUMIN 2.3 g/dL (3.4-5.0); BILIRUBIN,TOTAL 0.3 mg/dL (0.1-1.0); CHOL/HDL RATIO 2.2 (3.9-5.7); CREATININE 1.24 mg/dL (0.60-1.30); FREE T4 (FREE THYROXINE) 1.2 ng/dL (0.76-1.46); THYROID STIMULATING HORMONE 1.7 uIU/mL (0.36-3.74); TOTAL PROTEIN, SERUM 7.2 g/dL (6.4-8.2)
[2018-10-06 07:09] LABS: CALCIUM, TOTAL 12.1 mg/dL (8.8-10.5)
[2018-10-06 08:09] VITALS: BP 102/76
[2018-10-06 10:10] LABS: BASOPHILS % (AUTO) 0.8 % (0.0-2.0); EOSINOPHILS % (AUTO) 1.9 % (1.0-6.0); HEMOGLOBIN 13.8 g/dL (12.0-16.0); LYMPHOCYTES # (AUTO) 2.2 K/uL (1.0-4.8); LYMPHOCYTES % (AUTO) 20.8 % (22.0-44.0); MEAN CORPUSCULAR HEMOGLOBIN 26.6 pg (26.0-34.0); MEAN CORPUSCULAR HGB CONC 32.2 G/dL (31.0-37.0); MEAN CORPUSCULAR VOLUME 83 fL (80-100); MONOCYTES # (AUTO) 0.7 K/uL (0.1-1.0); MONOCYTES % (AUTO) 6.9 % (2.0-9.0); NEUTROPHILS # (AUTO) 7.3 K/uL (1.8-7.7); NEUTROPHILS % (AUTO) 69.6 % (40.0-70.0); PLATELET COUNT (AUTO) 233 K/uL (150-450); RED CELL DISTRIBUTION WIDTH 13.7 % (11.5-14.5)
[2018-10-06 10:18] LABS: HEMOGLOBIN A1C 6.5 % (4.5-6.2)
[2018-10-06 10:55] LABS: LACTIC ACID 1.3 mmol/L (0.4-2.0)
[2018-10-06 11:46] VITALS: BP 144/108
[2018-10-06 15:10] VITALS: BP 122/65
[2018-10-06] MEDS ORDERED: DEXTROSE 50%-WATER 25 GM/50 ML SYRINGE IVP PRN (15:30)
[2018-10-06] MEDS ORDERED: SODIUM CHLORIDE 0.45% 1,000 ML IV SCH (15:30)
[2018-10-06] MEDS ORDERED: SODIUM CHLORIDE 0.9% 1,000 ML IV SCH (18:05)
[2018-10-06] MEDS: DEXTROSE 5%-0.9% SODIUM CHL 1,000 ML IV SCH (18:41)
[2018-10-06 19:23] LABS: GLUCOMETER DEV NAME(LOC) 6N 1E; GLUCOSE,POINT OF CARE 141 MG/DL (70-110)
[2018-10-06 19:23] LABS: GLUCOMETER DEV NAME(LOC) 6N 1E; GLUCOSE,POINT OF CARE 53 MG/DL (70-110)
[2018-10-06 19:33] VITALS: BP 109/55
[2018-10-06] MEDS: MONTELUKAST SODIUM 10 MG TABLET PO SCH (20:46)
[2018-10-06] MEDS: LUBIPROSTONE 24 MCG CAPSULE PO SCH (20:46)
[2018-10-06] MEDS: CARVEDILOL 6.25 MG TABLET PO SCH (20:46)
[2018-10-06 21:53] LABS: GLUCOMETER DEV NAME(LOC) 6N 1E; GLUCOSE,POINT OF CARE 156 MG/DL (70-110)
[2018-10-06] MEDS: CALCITONIN,SALMON,SYNTHETIC 200 UNITS/ML 2 ML VIAL SQ SCH (23:10)
[2018-10-07] VITALS: BP 103/59
[2018-10-07 01:43] LABS: CREATININE,URINE RANDOM 87.2 mg/dL (30.0-125.0)
[2018-10-07] MEDS: DEXTROSE 5%-0.9% SODIUM CHL 1,000 ML IV SCH ×3 (03:36→12:30)
[2018-10-07 04:00] VITALS: BP 100/54
[2018-10-07] MEDS: INSULIN LISPRO 100 UNITS/ML SQ PRN ×4 (05:45→20:31)
[2018-10-07 06:09] LABS: GLUCOMETER DEV NAME(LOC) 6N 1E; GLUCOSE,POINT OF CARE 205 MG/DL (70-110)
[2018-10-07 08:00] VITALS: BP 95/66
[2018-10-07 08:12] LABS: BASOPHILS % (AUTO) 0.8 % (0.0-2.0); EOSINOPHILS % (AUTO) 0.9 % (1.0-6.0); HEMATOCRIT 41.7 % (36-46); HEMOGLOBIN 13.4 g/dL (12.0-16.0); LYMPHOCYTES # (AUTO) 1.4 K/uL (1.0-4.8); LYMPHOCYTES % (AUTO) 12.8 % (22.0-44.0); MEAN CORPUSCULAR HEMOGLOBIN 26.8 pg (26.0-34.0); MEAN CORPUSCULAR HGB CONC 32.1 G/dL (31.0-37.0); MEAN CORPUSCULAR VOLUME 84 fL (80-100); MONOCYTES # (AUTO) 0.8 K/uL (0.1-1.0); MONOCYTES % (AUTO) 7.6 % (2.0-9.0); NEUTROPHILS # (AUTO) 8.3 K/uL (1.8-7.7); NEUTROPHILS % (AUTO) 77.9 % (40.0-70.0); PLATELET COUNT (AUTO) 208 K/uL (150-450); RED BLOOD CELL COUNT(AUTO) 4.99 MIL/uL (4.00-5.20); RED CELL DISTRIBUTION WIDTH 14.2 % (11.5-14.5)
[2018-10-07 08:29] LABS: ALBUMIN 2.1 g/dL (3.4-5.0); BILIRUBIN,TOTAL 0.2 mg/dL (0.1-1.0); CALCIUM, TOTAL 10.8 mg/dL (8.8-10.5); CREATININE 1.06 mg/dL (0.60-1.30); MAGNESIUM 1.7 mg/dL (1.80-2.40); PHOSPHORUS 1.9 mg/dL (2.5-4.9); POTASSIUM 3.8 mmol/L (3.5-5.1); TOTAL PROTEIN, SERUM 7.1 g/dL (6.4-8.2)
[2018-10-07] MEDS: CALCITONIN,SALMON,SYNTHETIC 200 UNITS/ML 2 ML VIAL SQ SCH ×2 (08:48→20:19)
[2018-10-07] MEDS: LUBIPROSTONE 24 MCG CAPSULE PO SCH ×2 (08:49→20:13)
[2018-10-07] MEDS: PANTOPRAZOLE SODIUM 40 MG/VIAL IVP SCH (08:49)
[2018-10-07] MEDS: CARVEDILOL 6.25 MG TABLET PO SCH (08:49)
[2018-10-07] MEDS ORDERED: CHOLECALCIFEROL (VIT D3) 1,000 UNITS TABLET PO SCH (09:00)
[2018-10-07] MEDS ORDERED: VALSARTAN 40 MG TABLET PO SCH (09:00)
[2018-10-07 11:35] LABS: INR 1.1 (0.9-1.1); PROTHROMBIN TIME 11.4 SEC (9.4-11.6)
[2018-10-07 12:00] VITALS: BP 95/60
[2018-10-07] MEDS: HEPARIN SODIUM,PORCINE 5,000 UNITS/ML VIAL SQ SCH ×2 (12:08→23:28)
[2018-10-07] MEDS: ESCITALOPRAM OXALATE 10 MG TABLET PO SCH (12:08)
[2018-10-07] MEDS ORDERED: MAGNESIUM OXIDE 400 MG TABLET PO ONE (12:15)
[2018-10-07 12:59] LABS: GLUCOMETER DEV NAME(LOC) 6N 1E; GLUCOSE,POINT OF CARE 171 MG/DL (70-110)
[2018-10-07 16:00] VITALS: BP 147/74
[2018-10-07] MEDS: DEXTROSE 5%-0.45% SODIUM CHL 1,000 ML IV SCH (17:57)
[2018-10-07 19:52] VITALS: BP 90/41
[2018-10-07] MEDS: POTASSIUM PHOS/SODIUM PHOS MIXTURE 1 POWDER PACKET PO SCH (20:13)
[2018-10-07] MEDS: CARVEDILOL 3.125 MG TABLET PO SCH (20:13)
[2018-10-07] MEDS: MONTELUKAST SODIUM 10 MG TABLET PO SCH (20:13)
[2018-10-07 21:38] LABS: GLUCOMETER DEV NAME(LOC) 6N 2D; GLUCOSE,POINT OF CARE 155 MG/DL (70-110)
[2018-10-08 05:14] VITALS: BP 114/41
[2018-10-08 05:54] LABS: GLUCOMETER DEV NAME(LOC) 6N 1E; GLUCOSE,POINT OF CARE 116 MG/DL (70-110)
[2018-10-08 05:56] LABS: BASOPHILS % (AUTO) 1.3 % (0.0-2.0); EOSINOPHILS % (AUTO) 1.3 % (1.0-6.0); HEMATOCRIT 39.8 % (36-46); HEMOGLOBIN 12.8 g/dL (12.0-16.0); LYMPHOCYTES % (AUTO) 20.8 % (22.0-44.0); MEAN CORPUSCULAR HEMOGLOBIN 26.6 pg (26.0-34.0); MEAN CORPUSCULAR HGB CONC 32.1 G/dL (31.0-37.0); MEAN CORPUSCULAR VOLUME 83 fL (80-100); MONOCYTES # (AUTO) 0.8 K/uL (0.1-1.0); MONOCYTES % (AUTO) 8.6 % (2.0-9.0); NEUTROPHILS # (AUTO) 6.5 K/uL (1.8-7.7); PLATELET COUNT (AUTO) 199 K/uL (150-450); RED CELL DISTRIBUTION WIDTH 14.1 % (11.5-14.5)
[2018-10-08 06:13] LABS: ALANINE AMINOTRANSFERASE 21 U/L (12-78); ALKALINE PHOSPHATASE 61 U/L (46-116); ANION GAP 2 mmol/L (8-16); ASPARTATE AMINOTRANSFERASE 20 U/L (15-37); BILIRUBIN,TOTAL 0.2 mg/dL (0.1-1.0); CALCIUM, TOTAL 10.2 mg/dL (8.8-10.5); CARBON DIOXIDE 31 mmol/L (22-29); CHLORIDE 112 mmol/L (98-107); CREATININE 0.97 mg/dL (0.60-1.30); GLUCOSE,RANDOM 136 mg/dL (70-110); POTASSIUM 4.3 mmol/L (3.5-5.1); SODIUM SERUM 145 mmol/L (136-145); TOTAL PROTEIN, SERUM 6.7 g/dL (6.4-8.2); UREA NITROGEN, BLOOD 16 mg/dL (7-18)
[2018-10-08 06:46] LABS: GLOMERULAR FILTR. RATE CALC > 60 mL/min (>60)
[2018-10-08 06:48] LABS: PHOSPHORUS 1.4 mg/dL (2.5-4.9)
[2018-10-08] MEDS ORDERED: SODIUM PHOS,M-BASIC-D-BASIC 20 MEQ in DEXTROSE 5%-WATER 100 ML IV ONE (08:00)
[2018-10-08] MEDS ORDERED: MAGNESIUM SULFATE 2 GM in DEXTROSE 5%-WATER 50 ML IV ONE (08:00)
[2018-10-08 08:07] VITALS: BP 147/58
[2018-10-08] MEDS: LUBIPROSTONE 24 MCG CAPSULE PO SCH ×2 (09:00→21:00)
[2018-10-08] MEDS: POTASSIUM PHOS/SODIUM PHOS MIXTURE 1 POWDER PACKET PO SCH (09:00)
[2018-10-08] MEDS: CARVEDILOL 3.125 MG TABLET PO SCH ×2 (09:00→21:00)
[2018-10-08] MEDS: ESCITALOPRAM OXALATE 10 MG TABLET PO SCH (09:00)
[2018-10-08] MEDS: PANTOPRAZOLE SODIUM 40 MG/VIAL IVP SCH (09:00)
[2018-10-08] MEDS: CALCITONIN,SALMON,SYNTHETIC 200 UNITS/ML 2 ML VIAL SQ SCH ×2 (10:25→21:44)
[2018-10-08] MEDS: HEPARIN SODIUM,PORCINE 5,000 UNITS/ML VIAL SQ SCH (11:00)
[2018-10-08] MEDS ORDERED: SODIUM CHLORIDE 0.9% 1,000 ML IV ONE ×2 (12:12→12:30)
[2018-10-08 12:28] LABS: GLUCOMETER DEV NAME(LOC) 6N 2D; GLUCOSE,POINT OF CARE 101 MG/DL (70-110)
[2018-10-08] MEDS ORDERED: VANCOMYCIN HCL 1 GM/D5% WATER 200 ML IV ONE (12:30)
[2018-10-08 19:49] VITALS: BP 134/67
[2018-10-08] MEDS: MONTELUKAST SODIUM 10 MG TABLET PO SCH (21:00)
[2018-10-08 23:03] LABS: GLUCOMETER DEV NAME(LOC) 6N 1E; GLUCOSE,POINT OF CARE 126 MG/DL (70-110)
[2018-10-08 23:03] LABS: GLUCOMETER DEV NAME(LOC) 6N 2D; GLUCOSE,POINT OF CARE 128 MG/DL (70-110)
[2018-10-09] MEDS: HEPARIN SODIUM,PORCINE 5,000 UNITS/ML VIAL SQ SCH ×2 (00:03→11:24)
[2018-10-09 00:10] VITALS: BP 121/91
[2018-10-09] MEDS: DEXTROSE 5%-0.45% SODIUM CHL 1,000 ML IV SCH ×2 (01:34→18:21)
[2018-10-09 05:48] VITALS: BP 118/71
[2018-10-09 06:05] LABS: ANION GAP 3 mmol/L (8-16); CALCIUM, TOTAL 10.1 mg/dL (8.8-10.5); CARBON DIOXIDE 30 mmol/L (22-29); CHLORIDE 110 mmol/L (98-107); CREATININE 0.81 mg/dL (0.60-1.30); GLOMERULAR FILTR. RATE CALC > 60 mL/min (>60); GLUCOSE,RANDOM 150 mg/dL (70-110); PHOSPHORUS 2.2 mg/dL (2.5-4.9); SODIUM SERUM 143 mmol/L (136-145); UREA NITROGEN, BLOOD 13 mg/dL (7-18)
[2018-10-09 07:03] LABS: GLUCOMETER DEV NAME(LOC) 6N 2D; GLUCOSE,POINT OF CARE 129 MG/DL (70-110)
[2018-10-09] MEDS: PANTOPRAZOLE SODIUM 40 MG/VIAL IVP SCH (08:10)
[2018-10-09] MEDS: LUBIPROSTONE 24 MCG CAPSULE PO SCH ×2 (08:11→21:57)
[2018-10-09] MEDS: CARVEDILOL 3.125 MG TABLET PO SCH ×3 (08:11→21:34)
[2018-10-09] MEDS: ESCITALOPRAM OXALATE 10 MG TABLET PO SCH (08:12)
[2018-10-09] MEDS: POTASSIUM PHOS/SODIUM PHOS MIXTURE 1 POWDER PACKET PO SCH ×3 (09:00→21:35)
[2018-10-09] MEDS: CINACALCET HCL 30 MG TABLET PO SCH ×2 (10:15→12:23)
[2018-10-09] MEDS: CALCITONIN,SALMON,SYNTHETIC 200 UNITS/ML 2 ML VIAL SQ SCH ×2 (11:24→21:35)
[2018-10-09 12:40] VITALS: BP 127/74
[2018-10-09 16:04] VITALS: BP 137/81
[2018-10-09 17:08] LABS: GLUCOMETER DEV NAME(LOC) 6N 2D; GLUCOSE,POINT OF CARE 112 MG/DL (70-110)
[2018-10-09 17:58] LABS: GLUCOMETER DEV NAME(LOC) 6N 1E; GLUCOSE,POINT OF CARE 131 MG/DL (70-110)
[2018-10-09 19:45] VITALS: BP 140/88
[2018-10-09] MEDS: MONTELUKAST SODIUM 10 MG TABLET PO SCH (21:34)
[2018-10-10 00:04] VITALS: BP 130/95
[2018-10-10] MEDS: HEPARIN SODIUM,PORCINE 5,000 UNITS/ML VIAL SQ SCH ×3 (00:32→23:37)
[2018-10-10 02:33] LABS: GLUCOMETER DEV NAME(LOC) 6N 2D; GLUCOSE,POINT OF CARE 114 MG/DL (70-110)
[2018-10-10 04:46] VITALS: BP 132/79
[2018-10-10 06:29] LABS: GLUCOMETER DEV NAME(LOC) 6N 2D; GLUCOSE,POINT OF CARE 116 MG/DL (70-110)
[2018-10-10 07:09] LABS: BASOPHILS % (AUTO) 0.9 % (0.0-2.0); EOSINOPHILS % (AUTO) 3.1 % (1.0-6.0); HEMATOCRIT 37.8 % (36-46); HEMOGLOBIN 12.2 g/dL (12.0-16.0); LYMPHOCYTES # (AUTO) 1.9 K/uL (1.0-4.8); MEAN CORPUSCULAR HEMOGLOBIN 26.1 pg (26.0-34.0); MEAN CORPUSCULAR HGB CONC 32.1 G/dL (31.0-37.0); MEAN CORPUSCULAR VOLUME 81 fL (80-100); MONOCYTES # (AUTO) 0.8 K/uL (0.1-1.0); MONOCYTES % (AUTO) 10.7 % (2.0-9.0); NEUTROPHILS # (AUTO) 4.9 K/uL (1.8-7.7); NEUTROPHILS % (AUTO) 61.3 % (40.0-70.0); PLATELET COUNT (AUTO) 121 K/uL (150-450); RED BLOOD CELL COUNT(AUTO) 4.65 MIL/uL (4.00-5.20); RED CELL DISTRIBUTION WIDTH 13.7 % (11.5-14.5)
[2018-10-10 07:15] VITALS: BP 110/74
[2018-10-10 08:18] LABS: ANION GAP 3 mmol/L (8-16); CALCIUM, TOTAL 9.5 mg/dL (8.8-10.5); CARBON DIOXIDE 29 mmol/L (22-29); CHLORIDE 107 mmol/L (98-107); CREATININE 0.84 mg/dL (0.60-1.30); GLUCOSE,RANDOM 144 mg/dL (70-110); PHOSPHORUS 2.2 mg/dL (2.5-4.9); POTASSIUM 3.8 mmol/L (3.5-5.1); SODIUM SERUM 139 mmol/L (136-145); UREA NITROGEN, BLOOD 10 mg/dL (7-18)
[2018-10-10 08:19] LABS: GLOMERULAR FILTR. RATE CALC > 60 mL/min (>60)
[2018-10-10] MEDS: DEXTROSE 5%-0.45% SODIUM CHL 1,000 ML IV SCH ×3 (08:44→23:32)
[2018-10-10] MEDS: PANTOPRAZOLE SODIUM 40 MG/VIAL IVP SCH (09:04)
[2018-10-10] MEDS: CINACALCET HCL 30 MG TABLET PO SCH (09:05)
[2018-10-10] MEDS: LUBIPROSTONE 24 MCG CAPSULE PO SCH ×2 (09:05→20:05)
[2018-10-10] MEDS: CARVEDILOL 3.125 MG TABLET PO SCH ×2 (09:05→20:05)
[2018-10-10] MEDS: ESCITALOPRAM OXALATE 10 MG TABLET PO SCH (09:05)
[2018-10-10] MEDS: POTASSIUM PHOS/SODIUM PHOS MIXTURE 1 POWDER PACKET PO SCH ×2 (09:30→20:05)
[2018-10-10] MEDS ORDERED: MAGNESIUM SULFATE 2 GM in DEXTROSE 5%-WATER 50 ML IV ONE (09:30)
[2018-10-10 11:07] VITALS: BP 118/69
[2018-10-10] MEDS ORDERED: PROPOFOL 1% 20 ML VIAL IVP ONE (12:00)
[2018-10-10] MEDS ORDERED: LIDOCAINE/PF 2% 5 ML SYRINGE IVP ONE (12:00)
[2018-10-10 15:21] VITALS: BP 121/80
[2018-10-10 18:04] LABS: GLUCOMETER DEV NAME(LOC) 6N 1E; GLUCOSE,POINT OF CARE 108 MG/DL (70-110)
[2018-10-10 19:33] LABS: GLUCOMETER DEV NAME(LOC) 6N 2D; GLUCOSE,POINT OF CARE 119 MG/DL (70-110)
[2018-10-10 19:39] VITALS: BP 126/65
[2018-10-10] MEDS: MONTELUKAST SODIUM 10 MG TABLET PO SCH (20:05)
[2018-10-10 20:38] LABS: GLUCOMETER DEV NAME(LOC) 6N 1E; GLUCOSE,POINT OF CARE 132 MG/DL (70-110)
[2018-10-11] VITALS (7 sets, daily range): BP systolic 124–151; BP diastolic 67–98
[2018-10-11 05:04] LABS: GLUCOMETER DEV NAME(LOC) 6N 1E; GLUCOSE,POINT OF CARE 119 MG/DL (70-110)
[2018-10-11] MEDS: PANTOPRAZOLE SODIUM 40 MG/VIAL IVP SCH (08:32)
[2018-10-11 09:21] LABS: ANION GAP 6 mmol/L (8-16); CALCIUM, TOTAL 9.8 mg/dL (8.8-10.5); CARBON DIOXIDE 26 mmol/L (22-29); CHLORIDE 105 mmol/L (98-107); CREATININE 0.72 mg/dL (0.60-1.30); GLUCOSE,RANDOM 110 mg/dL (70-110); PHOSPHORUS 2.2 mg/dL (2.5-4.9); POTASSIUM 3.9 mmol/L (3.5-5.1); SODIUM SERUM 137 mmol/L (136-145); UREA NITROGEN, BLOOD 9 mg/dL (7-18)
[2018-10-11 09:25] LABS: GLOMERULAR FILTR. RATE CALC > 60 mL/min (>60)
[2018-10-11] MEDS ORDERED: MAGNESIUM SULFATE 1 GM in DEXTROSE 5%-WATER 50 ML IV ONE (10:00)
[2018-10-11] MEDS: HEPARIN SODIUM,PORCINE 5,000 UNITS/ML VIAL SQ SCH ×2 (12:20→23:00)
[2018-10-11] MEDS: LUBIPROSTONE 24 MCG CAPSULE PO SCH ×2 (12:21→20:24)
[2018-10-11] MEDS: POTASSIUM PHOS/SODIUM PHOS MIXTURE 1 POWDER PACKET PO SCH ×2 (12:21→20:25)
[2018-10-11] MEDS: CINACALCET HCL 30 MG TABLET PO SCH (12:21)
[2018-10-11] MEDS: ESCITALOPRAM OXALATE 10 MG TABLET PO SCH (12:21)
[2018-10-11] MEDS: CARVEDILOL 3.125 MG TABLET PO SCH ×2 (12:22→20:24)
[2018-10-11] MEDS: INSULIN LISPRO 100 UNITS/ML SQ PRN ×2 (13:01→17:32)
[2018-10-11 17:48] LABS: GLUCOMETER DEV NAME(LOC) 6N 2D; GLUCOSE,POINT OF CARE 87 MG/DL (70-110)
[2018-10-11] MEDS: MONTELUKAST SODIUM 10 MG TABLET PO SCH (20:24)
[2018-10-12 00:04] LABS: GLUCOMETER DEV NAME(LOC) 6N 2D; GLUCOSE,POINT OF CARE 100 MG/DL (70-110)
[2018-10-12 04:41] VITALS: BP 134/74
[2018-10-12 06:49] LABS: GLUCOMETER DEV NAME(LOC) 6N 1E; GLUCOSE,POINT OF CARE 88 MG/DL (70-110)
[2018-10-12 06:51] LABS: BASOPHILS % (AUTO) 0.7 % (0.0-2.0); EOSINOPHILS % (AUTO) 5.3 % (1.0-6.0); HEMATOCRIT 37.1 % (36-46); HEMOGLOBIN 11.8 g/dL (12.0-16.0); LYMPHOCYTES % (AUTO) 28.5 % (22.0-44.0); MEAN CORPUSCULAR HEMOGLOBIN 25.9 pg (26.0-34.0); MEAN CORPUSCULAR HGB CONC 31.9 G/dL (31.0-37.0); MEAN CORPUSCULAR VOLUME 81 fL (80-100); MONOCYTES # (AUTO) 0.6 K/uL (0.1-1.0); MONOCYTES % (AUTO) 8.5 % (2.0-9.0); PLATELET COUNT (AUTO) 192 K/uL (150-450); RED BLOOD CELL COUNT(AUTO) 4.57 MIL/uL (4.00-5.20); RED CELL DISTRIBUTION WIDTH 13.8 % (11.5-14.5)
[2018-10-12] MEDS ORDERED: HYDROmorphone 2 MG/ML SYRINGE IVP PRN (07:00)
[2018-10-12] MEDS ORDERED: FentaNYL CITRATE-PF 100 MCG/2 ML VIAL IVP PRN (07:00)
[2018-10-12 07:05] LABS: ANION GAP 4 mmol/L (8-16); CALCIUM, TOTAL 10.1 mg/dL (8.8-10.5); CARBON DIOXIDE 30 mmol/L (22-29); CHLORIDE 104 mmol/L (98-107); CREATININE 0.73 mg/dL (0.60-1.30); GLUCOSE,RANDOM 87 mg/dL (70-110); PHOSPHORUS 2.9 mg/dL (2.5-4.9); POTASSIUM 3.8 mmol/L (3.5-5.1); SODIUM SERUM 138 mmol/L (136-145); UREA NITROGEN, BLOOD 9 mg/dL (7-18)
[2018-10-12 07:15] LABS: GLOMERULAR FILTR. RATE CALC > 60 mL/min (>60)
[2018-10-12] MEDS ORDERED: LIDOCAINE 1%/EPI 1:200,000/PF 30 ML VIAL ONE (07:17)
[2018-10-12] MEDS ORDERED: SODIUM CHLORIDE 0.9% 1,000 ML IV ONE (07:18)
[2018-10-12] MEDS: CINACALCET HCL 30 MG TABLET PO SCH (08:00)
[2018-10-12] MEDS ORDERED: HYDROmorphone 2 MG/ML SYRINGE ONE (08:58)
[2018-10-12] MEDS: ESCITALOPRAM OXALATE 10 MG TABLET PO SCH (09:00)
[2018-10-12] MEDS: LUBIPROSTONE 24 MCG CAPSULE PO SCH ×2 (09:00→20:57)
[2018-10-12] MEDS: CARVEDILOL 3.125 MG TABLET PO SCH ×2 (09:00→20:57)
[2018-10-12 10:33] VITALS: BP 103/69
[2018-10-12] MEDS: OXYGEN THERAPY IH SCH ×2 (11:23→20:49)
[2018-10-12] MEDS: PANTOPRAZOLE SODIUM 40 MG/VIAL IVP SCH (11:23)
[2018-10-12 11:43] LABS: GLUCOMETER DEV NAME(LOC) 6N 2D; GLUCOSE,POINT OF CARE 78 MG/DL (70-110)
[2018-10-12] MEDS ORDERED: EPHEDrine SULFATE 50 MG/ML VIAL IM ONE (12:00)
[2018-10-12] MEDS ORDERED: PROPOFOL 1% 20 ML VIAL IVP ONE (12:00)
[2018-10-12] MEDS ORDERED: LIDOCAINE/PF 2% 5 ML VIAL INJ ONE (12:00)
[2018-10-12] MEDS ORDERED: PHENYLEPHRINE HCL 10 MG/ML VIAL IVP ONE (12:00)
[2018-10-12] MEDS ORDERED: SUCCINYLCHOLINE CHLORIDE 20 MG/ML 10 ML VIAL IVP ONE (12:00)
[2018-10-12] MEDS ORDERED: FentaNYL CITRATE-PF 100 MCG/2 ML VIAL IVP ONE (12:00)
[2018-10-12] MEDS ORDERED: 0.9% SODIUM CHLORIDE 10 ML VIAL IVP ONE (12:00)
[2018-10-12 13:38] LABS: GLUCOMETER DEV NAME(LOC) 5S 1N; GLUCOSE,POINT OF CARE 104 MG/DL (70-110)
[2018-10-12 16:35] VITALS: BP 124/82
[2018-10-12 20:23] VITALS: BP 135/77
[2018-10-12] MEDS: DEXTROSE 5%-0.45% SODIUM CHL 1,000 ML IV SCH (20:48)
[2018-10-12] MEDS: DICLOFENAC SODIUM 1% 100 GM GEL [4GM] TP SCH (20:49)
[2018-10-12] MEDS: MONTELUKAST SODIUM 10 MG TABLET PO SCH (20:57)
[2018-10-12] MEDS ORDERED: DOCUSATE SODIUM 250 MG CAPSULE PO SCH (21:00)
[2018-10-12 21:24] LABS: GLUCOMETER DEV NAME(LOC) 5S 1N; GLUCOSE,POINT OF CARE 88 MG/DL (70-110)
[2018-10-12 21:24] LABS: GLUCOMETER DEV NAME(LOC) 5S 1N; GLUCOSE,POINT OF CARE 113 MG/DL (70-110)
[2018-10-13 00:21] VITALS: BP 124/80
[2018-10-13 01:53] VITALS: BP 119/74
[2018-10-13 06:24] VITALS: BP 114/78
[2018-10-13] MEDS ORDERED: PANTOPRAZOLE SODIUM 40 MG DR TABLET PO SCH (06:30)
[2018-10-13 07:39] LABS: BASOPHILS % (AUTO) 0.7 % (0.0-2.0); EOSINOPHILS % (AUTO) 0.8 % (1.0-6.0); HEMOGLOBIN 12.5 g/dL (12.0-16.0); LYMPHOCYTES # (AUTO) 1.6 K/uL (1.0-4.8); MEAN CORPUSCULAR HEMOGLOBIN 26.3 pg (26.0-34.0); MEAN CORPUSCULAR HGB CONC 32.8 G/dL (31.0-37.0); MEAN CORPUSCULAR VOLUME 80 fL (80-100); MONOCYTES # (AUTO) 1.1 K/uL (0.1-1.0); MONOCYTES % (AUTO) 8.7 % (2.0-9.0); NEUTROPHILS # (AUTO) 9.6 K/uL (1.8-7.7); NEUTROPHILS % (AUTO) 76.8 % (40.0-70.0); PLATELET COUNT (AUTO) 197 K/uL (150-450); RED BLOOD CELL COUNT(AUTO) 4.74 MIL/uL (4.00-5.20); RED CELL DISTRIBUTION WIDTH 14.2 % (11.5-14.5)
[2018-10-13 07:41] VITALS: BP 131/73
[2018-10-13 07:50] LABS: ANION GAP 2 mmol/L (8-16); CALCIUM, TOTAL 10.2 mg/dL (8.8-10.5); CARBON DIOXIDE 31 mmol/L (22-29); CHLORIDE 104 mmol/L (98-107); CREATININE 0.73 mg/dL (0.60-1.30); GLUCOSE,RANDOM 123 mg/dL (70-110); PHOSPHORUS 2.6 mg/dL (2.5-4.9); POTASSIUM 3.8 mmol/L (3.5-5.1); SODIUM SERUM 137 mmol/L (136-145); UREA NITROGEN, BLOOD 9 mg/dL (7-18)
[2018-10-13 07:59] LABS: GLOMERULAR FILTR. RATE CALC > 60 mL/min (>60)
[2018-10-13] MEDS ORDERED: FERROUS SULFATE 325 MG EC TABLET PO SCH (08:00)
[2018-10-13] MEDS ORDERED: CINACALCET HCL 30 MG TABLET PEG SCH (08:00)
[2018-10-13] MEDS ORDERED: LUBIPROSTONE 24 MCG CAPSULE PO SCH (08:00)
[2018-10-13] MEDS ORDERED: MAGNESIUM HYDROXIDE SUSPENSION 30 ML UDCUP PEG PRN (08:15)
[2018-10-13] MEDS ORDERED: POTASSIUM CHLORIDE 10% 40 MEQ/30 ML LIQUID UDCUP PEG SCH (09:00)
[2018-10-13] MEDS ORDERED: LEVOFLOXACIN 500 MG TABLET PEG SCH (09:00)
[2018-10-13] MEDS ORDERED: CARVEDILOL 3.125 MG TABLET PEG SCH (09:00)
[2018-10-13] MEDS ORDERED: DOCUSATE SODIUM 250 MG CAPSULE PEG SCH (09:00)
[2018-10-13] MEDS ORDERED: POTASSIUM CHLORIDE 20 MEQ ER TABLET PO SCH (09:00)
[2018-10-13] MEDS ORDERED: FERROUS SULFATE 300 MG/5 ML LIQUID UDCUP PEG SCH (09:00)
[2018-10-13] MEDS ORDERED: SPIRONOLACTONE 25 MG TABLET PO SCH (09:00)
[2018-10-13] MEDS ORDERED: LEVOFLOXACIN 500 MG TABLET PO SCH (09:00)
[2018-10-13] MEDS ORDERED: ESCITALOPRAM OXALATE 10 MG TABLET PEG SCH (09:00)
[2018-10-13] MEDS ORDERED: HEPARIN SODIUM,PORCINE 5,000 UNITS/ML VIAL SQ SCH (09:00)
[2018-10-13] MEDS ORDERED: ASPIRIN 325 MG TABLET PEG SCH (09:00)
[2018-10-13] MEDS ORDERED: ASPIRIN 325 MG EC TABLET PO SCH (09:00)
[2018-10-13] MEDS: OXYGEN THERAPY IH SCH (09:01)
[2018-10-13] MEDS: DICLOFENAC SODIUM 1% 100 GM GEL [4GM] TP SCH (09:03)
[2018-10-13] MEDS ORDERED: MAGNESIUM SULFATE 2 GM/WATER 50 ML IV ONE (10:30)
[2018-10-13 12:23] VITALS: BP 117/80
[2018-10-13 17:15] LABS: GLUCOMETER DEV NAME(LOC) 5S 1N; GLUCOSE,POINT OF CARE 111 MG/DL (70-110)
[2018-10-13 17:15] LABS: GLUCOMETER DEV NAME(LOC) 5N 2S; GLUCOSE,POINT OF CARE 106 MG/DL (70-110)
[2018-10-13 17:15] LABS: GLUCOMETER DEV NAME(LOC) 5S 1N; GLUCOSE,POINT OF CARE 136 MG/DL (70-110)
[2018-10-13] MEDS ORDERED: LUBIPROSTONE 24 MCG CAPSULE PEG SCH (21:00)
[2018-10-13] MEDS ORDERED: MONTELUKAST SODIUM 10 MG TABLET PEG SCH (21:00)
[2018-10-14] MEDS ORDERED: CINACALCET HCL 30 MG TABLET PEG SCH (08:00)
== END 2018-10-13 14:25 | DRG 640 ==
LOC: EMS 18:05 → 6N 22:05 → 5N 10-12 09:25
PROVIDERS: ADMIT Internal Medicine Geriatric Medicine; ATTEND Internal Medicine Geriatric Medicine
PROC: 0DJ08ZZ Inspection of Upper Intestinal Tract, Via Natural or Artificial Opening Endoscopic (ICD-10-PCS; 2018-10-08)
PROC: 0DH64UZ Insertion of Feeding Device into Stomach, Percutaneous Endoscopic Approach (ICD-10-PCS; 2018-10-12)
PROC: 0DJ08ZZ Inspection of Upper Intestinal Tract, Via Natural or Artificial Opening Endoscopic (ICD-10-PCS; principal; 2018-10-12 07:30)
DX: R62.7 Adult failure to thrive (principal); E43 Unspecified severe protein-calorie malnutrition; I13.0 Hypertensive heart and chronic kidney disease with heart failure and stage 1 through stage 4 chronic kidney disease, or unspecified chronic kidney disease; F33.2 Major depressive disorder, recurrent severe without psychotic features; J44.9 Chronic obstructive pulmonary disease, unspecified; E86.0 Dehydration; K58.9 Irritable bowel syndrome, unspecified; I11.0 Hypertensive heart disease with heart failure; F03.90 Unspecified dementia, unspecified severity, without behavioral disturbance, psychotic disturbance, mood disturbance, and anxiety; M19.90 Unspecified osteoarthritis, unspecified site; K21.9 Gastro-esophageal reflux disease without esophagitis; D64.9 Anemia, unspecified; E87.5 Hyperkalemia; E11.22 Type 2 diabetes mellitus with diabetic chronic kidney disease; E21.3 Hyperparathyroidism, unspecified; E78.00 Pure hypercholesterolemia, unspecified; F25.9 Schizoaffective disorder, unspecified; I50.9 Heart failure, unspecified; K66.0 Peritoneal adhesions (postprocedural) (postinfection); K80.20 Calculus of gallbladder without cholecystitis without obstruction; N18.9 Chronic kidney disease, unspecified; Z53.9 Procedure and treatment not carried out, unspecified reason; Z74.01 Bed confinement status; Z82.49 Family history of ischemic heart disease and other diseases of the circulatory system; Z87.891 Personal history of nicotine dependence; Z91.19 Patient's noncompliance with other medical treatment and regimen; Z98.41 Cataract extraction status, right eye; Z88.0 Allergy status to penicillin; Z88.2 Allergy status to sulfonamides; Z88.8 Allergy status to other drugs, medicaments and biological substances
CPT/HCPCS: 70450; 74176; 81050; 82340; 82570; 83036; 83605; 83735; 83970; 84100; 84156; 84439; 84443; 86592; 87081; 92610; 93005; 93306; 96361; 96374; C9113; G0378; J0330; J0630; J1170; J1644; J2370; J2704; J3010; J3370; J3475; J3490; J7030; J7042; J7060

== ENCOUNTER 2019-03-17 07:54 | Emergency (ER) | payer MEDICARE, MEDICAID ==
[~2019-03-17] VITALS: Ht 152.4 cm; Wt 77.3 kg
[2019-03-17] MEDS ORDERED: NITROGLYCERIN 2% (1 GM=INCH) PACKET TP ONE (08:45)
[2019-03-17] MEDS ORDERED: DIATRIZOATE MEGLU/SOD 660/100 MG/ML 120 ML BOTTLE ONE (09:08)
[2019-03-17] MEDS ORDERED: LIDOCAINE/PF 1% 5 ML VIAL ONE (09:10)
[2019-03-17 14:30] VITALS: BP 162/116
== END 2019-03-17 14:35 | disposition home or self-care (01) ==
LOC: EMS 07:56
DX: Z43.4 Encounter for attention to other artificial openings of digestive tract (principal); E78.00 Pure hypercholesterolemia, unspecified; I11.0 Hypertensive heart disease with heart failure; I50.9 Heart failure, unspecified; Z88.0 Allergy status to penicillin; Z88.1 Allergy status to other antibiotic agents; Z88.2 Allergy status to sulfonamides; Z79.899 Other long term (current) drug therapy; Z79.82 Long term (current) use of aspirin
CPT/HCPCS: 49450; 99284; C1769; J3490; Q9963

== ENCOUNTER 2019-03-27 21:58 | Emergency (ER) | payer MEDICARE, MEDICAID ==
[~2019-03-27] VITALS: Ht 152.4 cm; Wt 72.0 kg
[2019-03-27 23:29] VITALS: BP 166/99
== END 2019-03-28 01:28 | disposition home or self-care (01) ==
LOC: EMS 21:58
DX: K94.23 Gastrostomy malfunction (principal); S31.109A Unspecified open wound of abdominal wall, unspecified quadrant without penetration into peritoneal cavity, initial encounter; I11.0 Hypertensive heart disease with heart failure; I50.9 Heart failure, unspecified; E78.00 Pure hypercholesterolemia, unspecified; J44.9 Chronic obstructive pulmonary disease, unspecified; Z88.0 Allergy status to penicillin; Z88.2 Allergy status to sulfonamides; Z88.1 Allergy status to other antibiotic agents; Z79.899 Other long term (current) drug therapy; X58.XXXA Exposure to other specified factors, initial encounter; Y93.89 Activity, other specified; Y92.89 Other specified places as the place of occurrence of the external cause; Y99.8 Other external cause status

== ENCOUNTER 2021-11-28 16:45 | Inpatient (IN) | payer MEDICARE, MEDICAID ==
[~2021-11-28] VITALS: Ht 162.6 cm; Wt 76.0 kg
[~2021-11-28 16:45] MED LIST changes: -ASPI-891 PO; +ASPI325T87 PO; +CHOL100018 PO; +DOCU-350 PO; -DOCU250C91 PO; -KDUR20 PO; +LEVO-72 PO; -LEVO500 PO; +MONT-35 PO; -MONT10TA21 PO; +PANT-31 PO; -PANT40TA25 PO; +POTA-206 PO; -SENN-176 PO; +SENN-277 PO; -VITAD1000 PO
[2021-11-28] MEDS ORDERED: VANCOMYCIN HCL 1 GM/D5% WATER 200 ML IV ONE (18:00)
[2021-11-28 18:07] LABS: BASOPHILS % (AUTO) 0.5 % (0.0-2.0); EOSINOPHILS % (AUTO) 4.8 % (1.0-6.0); HEMATOCRIT 39.2 % (36-46); HEMOGLOBIN 12.5 g/dL (12.0-16.0); LYMPHOCYTES # (AUTO) 2.1 K/uL (1.0-4.8); LYMPHOCYTES % (AUTO) 25.8 % (22.0-44.0); MEAN CORPUSCULAR HEMOGLOBIN 25.4 pg (26.0-34.0); MEAN CORPUSCULAR VOLUME 80 fL (80-100); MONOCYTES # (AUTO) 0.6 K/uL (0.1-1.0); MONOCYTES % (AUTO) 8.1 % (2.0-9.0); NEUTROPHILS # (AUTO) 4.8 K/uL (1.8-7.7); NEUTROPHILS % (AUTO) 60.8 % (40.0-70.0); PLATELET COUNT (AUTO) 269 K/uL (150-450); RED BLOOD CELL COUNT(AUTO) 4.93 MIL/uL (4.00-5.20); RED CELL DISTRIBUTION WIDTH 15.3 % (11.5-14.5)
[2021-11-28 18:09] LABS: COVID AG,FIA SOURCE NASOPHARYNGEAL
[2021-11-28] MEDS ORDERED: HydrALAZINE HCL 20 MG/ML VIAL IVP ONE ×2 (18:15→20:00)
[2021-11-28 18:16] LABS: ANION GAP 1 mmol/L (8-16); CALCIUM, TOTAL 9.5 mg/dL (8.8-10.5); CARBON DIOXIDE 32 mmol/L (22-29); CHLORIDE 107 mmol/L (98-107); CREATININE 0.68 mg/dL (0.60-1.30); GLUCOSE,RANDOM 125 mg/dL (70-110); POTASSIUM 4.2 mmol/L (3.5-5.1); SODIUM SERUM 140 mmol/L (136-145); UREA NITROGEN, BLOOD 18 mg/dL (7-18)
[2021-11-28 18:18] LABS: GLOMERULAR FILTR. RATE CALC > 60 mL/min (>60)
[2021-11-28 18:22] LABS: PROTHROMBIN TIME 10.9 SEC (9.4-11.6)
[2021-11-28 18:27] LABS: ALANINE AMINOTRANSFERASE 8 U/L (12-78); ALBUMIN 2.4 g/dL (3.4-5.0); ALKALINE PHOSPHATASE 76 U/L (46-116); ASPARTATE AMINOTRANSFERASE 11 U/L (15-37); BILIRUBIN,TOTAL 0.3 mg/dL (0.1-1.0); TOTAL PROTEIN, SERUM 7.2 g/dL (6.4-8.2)
[2021-11-28 19:21] LABS: ERYTHROCYTE SEDIMENTATION RATE 23 MM/HR (0-20)
[2021-11-28] MEDS ORDERED: MORPHINE SULFATE 4 MG/ML SYRINGE IVP ONE (20:00)
[2021-11-28] MEDS ORDERED: ONDANSETRON HCL 4 MG/2 ML VIAL IVP ONE (20:00)
[2021-11-28 23:01] LABS: APPEARANCE,URINE CLEAR (CLEAR); BILIRUBIN,URINE NEGATIVE (NEGATIVE); GLUCOSE, URINE (UA) NEGATIVE (NEGATIVE); KETONES,URINE NEGATIVE (NEGATIVE); LEUKOCYTE ESTERASE ,URINE NEGATIVE (NEGATIVE); NITRATE,URINE NEGATIVE (NEGATIVE); OCCULT BLOOD,URINE TRACE (NEGATIVE); PH,URINE 7.5 (5.0-8.0); PROTEIN,URINE NEGATIVE (NEGATIVE)
[2021-11-28 23:20] LABS: BACTERIA,URINE Rare /HPF (None Seen); SQUAMOUS EPITHELIAL CELL,UR Few /LPF (None Seen); WBC,URINE 0-2 /HPF (0-5)
[2021-11-28] MEDS ORDERED: 0.9% SODIUM CHLORIDE 10 ML SYRINGE IVP PRN (23:45)
[2021-11-29 07:33] LABS: BASOPHILS % (AUTO) 0.5 % (0.0-2.0); EOSINOPHILS % (AUTO) 0.7 % (1.0-6.0); HEMATOCRIT 42.5 % (36-46); HEMOGLOBIN 13.4 g/dL (12.0-16.0); LYMPHOCYTES # (AUTO) 2.5 K/uL (1.0-4.8); LYMPHOCYTES % (AUTO) 23.5 % (22.0-44.0); MEAN CORPUSCULAR HEMOGLOBIN 25.5 pg (26.0-34.0); MEAN CORPUSCULAR HGB CONC 31.5 G/dL (31.0-37.0); MEAN CORPUSCULAR VOLUME 81 fL (80-100); MONOCYTES # (AUTO) 0.7 K/uL (0.1-1.0); MONOCYTES % (AUTO) 6.7 % (2.0-9.0); NEUTROPHILS # (AUTO) 7.4 K/uL (1.8-7.7); NEUTROPHILS % (AUTO) 68.6 % (40.0-70.0); PLATELET COUNT (AUTO) 256 K/uL (150-450); RED BLOOD CELL COUNT(AUTO) 5.26 MIL/uL (4.00-5.20); RED CELL DISTRIBUTION WIDTH 15.3 % (11.5-14.5)
[2021-11-29 07:50] LABS: ALANINE AMINOTRANSFERASE 7 U/L (12-78); ALBUMIN 2.6 g/dL (3.4-5.0); ALKALINE PHOSPHATASE 80 U/L (46-116); ANION GAP 5 mmol/L (8-16); ASPARTATE AMINOTRANSFERASE 13 U/L (15-37); BILIRUBIN,TOTAL 0.4 mg/dL (0.1-1.0); CALCIUM, TOTAL 9.7 mg/dL (8.8-10.5); CARBON DIOXIDE 31 mmol/L (22-29); CHLORIDE 106 mmol/L (98-107); CREATININE 0.69 mg/dL (0.60-1.30); GLUCOSE,RANDOM 110 mg/dL (70-110); POTASSIUM 4.3 mmol/L (3.5-5.1); SODIUM SERUM 142 mmol/L (136-145); TOTAL PROTEIN, SERUM 7.8 g/dL (6.4-8.2); UREA NITROGEN, BLOOD 17 mg/dL (7-18)
[2021-11-29 07:51] LABS: GLOMERULAR FILTR. RATE CALC > 60 mL/min (>60)
[2021-11-29] MEDS ORDERED: CLON0.1T PO (10:34)
[2021-11-29] MEDS ORDERED: LOSA100T58 PO (10:34)
[2021-11-29] MEDS ORDERED: FURO-152 PO (10:34)
[2021-11-29] MEDS ORDERED: CARV12.530 PO (10:34)
[2021-11-29] MEDS ORDERED: CINA30TA5 PO (10:34)
[2021-11-29] MEDS ORDERED: ASPI81TA87 PO (10:34)
[2021-11-29] MEDS: CHOLECALCIFEROL (VIT D3) 1,000 UNITS [25 MCG] TABLET PO SCH (10:39)
[2021-11-29] MEDS: ALBUTEROL SULFATE 2.5 MG/0.5 ML NEB SOLUTION NEB SCH ×3 (10:39→19:12)
[2021-11-29] MEDS: IPRATROPIUM BROMIDE 0.5 MG/2.5 ML NEB SOLUTION NEB SCH ×3 (10:40→19:12)
[2021-11-29] MEDS: CARVEDILOL 6.25 MG TABLET PO SCH ×2 (12:07→20:36)
[2021-11-29] MEDS: DOCUSATE SODIUM 250 MG CAPSULE PO SCH ×2 (12:07→20:36)
[2021-11-29] MEDS: FERROUS SULFATE 325 MG EC TABLET PO SCH (12:07)
[2021-11-29] MEDS ORDERED: HydrALAZINE HCL 20 MG/ML VIAL IVP ONE (20:30)
[2021-11-29] MEDS: ATORVASTATIN CALCIUM 40 MG TABLET PO SCH (20:34)
[2021-11-29] MEDS: CloNIDine HCL 0.1 MG TABLET PO PRN (20:34)
[2021-11-29] MEDS: LUBIPROSTONE 24 MCG CAPSULE PO SCH (20:35)
[2021-11-29] MEDS: MONTELUKAST SODIUM 10 MG TABLET PO SCH (20:36)
[2021-11-29 22:35] VITALS: BP 141/94
[2021-11-30] MEDS: ALBUTEROL SULFATE 2.5 MG/0.5 ML NEB SOLUTION NEB SCH ×6 (02:00→20:00)
[2021-11-30] MEDS: IPRATROPIUM BROMIDE 0.5 MG/2.5 ML NEB SOLUTION NEB SCH ×5 (02:00→20:00)
[2021-11-30 02:04] VITALS: BP 132/97
[2021-11-30] MEDS: PANTOPRAZOLE SODIUM 40 MG DR TABLET PO SCH (06:30)
[2021-11-30 07:23] VITALS: BP 156/95
[2021-11-30] MEDS: CHOLECALCIFEROL (VIT D3) 1,000 UNITS [25 MCG] TABLET PO SCH (09:33)
[2021-11-30] MEDS: DOCUSATE SODIUM 250 MG CAPSULE PO SCH ×2 (09:34→21:21)
[2021-11-30] MEDS: FERROUS SULFATE 325 MG EC TABLET PO SCH (09:34)
[2021-11-30] MEDS: CARVEDILOL 6.25 MG TABLET PO SCH ×2 (09:34→21:21)
[2021-11-30] MEDS: TraMADol HCL 50 MG TABLET PO SCH (09:34)
[2021-11-30 11:31] VITALS: BP 129/75
[2021-11-30] MEDS: LUBIPROSTONE 24 MCG CAPSULE PO SCH ×2 (13:23→23:41)
[2021-11-30 14:47] LABS: BASOPHILS % (AUTO) 1.2 % (0.0-2.0); EOSINOPHILS % (AUTO) 0.2 % (1.0-6.0); HEMATOCRIT 41.7 % (36-46); HEMOGLOBIN 13.2 g/dL (12.0-16.0); LYMPHOCYTES # (AUTO) 1.3 K/uL (1.0-4.8); MEAN CORPUSCULAR HEMOGLOBIN 25.3 pg (26.0-34.0); MEAN CORPUSCULAR HGB CONC 31.6 G/dL (31.0-37.0); MEAN CORPUSCULAR VOLUME 80 fL (80-100); MONOCYTES # (AUTO) 0.8 K/uL (0.1-1.0); MONOCYTES % (AUTO) 6.4 % (2.0-9.0); NEUTROPHILS # (AUTO) 10.7 K/uL (1.8-7.7); NEUTROPHILS % (AUTO) 82.2 % (40.0-70.0); PLATELET COUNT (AUTO) 284 K/uL (150-450); RED BLOOD CELL COUNT(AUTO) 5.21 MIL/uL (4.00-5.20)
[2021-11-30 14:56] LABS: ANION GAP 5 mmol/L (8-16); CALCIUM, TOTAL 10.1 mg/dL (8.8-10.5); CARBON DIOXIDE 30 mmol/L (22-29); CHLORIDE 105 mmol/L (98-107); CREATININE 0.74 mg/dL (0.60-1.30); GLUCOSE,RANDOM 148 mg/dL (70-110); POTASSIUM 4.3 mmol/L (3.5-5.1); SODIUM SERUM 140 mmol/L (136-145); UREA NITROGEN, BLOOD 25 mg/dL (7-18)
[2021-11-30 15:02] LABS: ALANINE AMINOTRANSFERASE 9 U/L (12-78); ALBUMIN 2.7 g/dL (3.4-5.0); ALKALINE PHOSPHATASE 81 U/L (46-116); ASPARTATE AMINOTRANSFERASE 13 U/L (15-37); BILIRUBIN,TOTAL 0.5 mg/dL (0.1-1.0); TOTAL PROTEIN, SERUM 7.7 g/dL (6.4-8.2)
[2021-11-30 15:22] LABS: GLOMERULAR FILTR. RATE CALC > 60 mL/min (>60)
[2021-11-30 15:33] VITALS: BP 157/97
[2021-11-30 19:38] VITALS: BP 148/84
[2021-11-30] MEDS: MONTELUKAST SODIUM 10 MG TABLET PO SCH (21:21)
[2021-11-30] MEDS: ATORVASTATIN CALCIUM 40 MG TABLET PO SCH (21:21)
[2021-12-01] VITALS (7 sets, daily range): BP systolic 102–164; BP diastolic 72–98
[2021-12-01] MEDS ORDERED: SODIUM CHLORIDE 0.9% 0 ML IV ONE (00:12)
[2021-12-01] MEDS: LEVOFLOXACIN 750 MG/D5% WATER 150 ML IV SCH (00:24)
[2021-12-01] MEDS: IPRATROPIUM BROMIDE 0.5 MG/2.5 ML NEB SOLUTION NEB SCH ×4 (03:00→20:31)
[2021-12-01] MEDS: ALBUTEROL SULFATE 2.5 MG/0.5 ML NEB SOLUTION NEB SCH ×4 (03:00→20:31)
[2021-12-01] MEDS: CloNIDine HCL 0.1 MG TABLET PO PRN (04:15)
[2021-12-01] MEDS: PANTOPRAZOLE SODIUM 40 MG DR TABLET PO SCH (05:30)
[2021-12-01] MEDS: CHOLECALCIFEROL (VIT D3) 1,000 UNITS [25 MCG] TABLET PO SCH (08:15)
[2021-12-01] MEDS: LUBIPROSTONE 24 MCG CAPSULE PO SCH ×2 (08:16→18:00)
[2021-12-01] MEDS: CARVEDILOL 6.25 MG TABLET PO SCH ×2 (08:16→22:18)
[2021-12-01 08:17] LABS: BASOPHILS % (AUTO) 0.4 % (0.0-2.0); EOSINOPHILS % (AUTO) 0.6 % (1.0-6.0); HEMATOCRIT 38.5 % (36-46); HEMOGLOBIN 12.4 g/dL (12.0-16.0); LYMPHOCYTES # (AUTO) 1.2 K/uL (1.0-4.8); LYMPHOCYTES % (AUTO) 10.2 % (22.0-44.0); MEAN CORPUSCULAR HEMOGLOBIN 25.7 pg (26.0-34.0); MEAN CORPUSCULAR HGB CONC 32.1 G/dL (31.0-37.0); MEAN CORPUSCULAR VOLUME 80 fL (80-100); MONOCYTES # (AUTO) 0.8 K/uL (0.1-1.0); MONOCYTES % (AUTO) 7.2 % (2.0-9.0); NEUTROPHILS # (AUTO) 9.4 K/uL (1.8-7.7); NEUTROPHILS % (AUTO) 81.6 % (40.0-70.0); PLATELET COUNT (AUTO) 264 K/uL (150-450); RED BLOOD CELL COUNT(AUTO) 4.81 MIL/uL (4.00-5.20); RED CELL DISTRIBUTION WIDTH 14.9 % (11.5-14.5)
[2021-12-01] MEDS: DOCUSATE SODIUM 250 MG CAPSULE PO SCH ×2 (08:17→21:00)
[2021-12-01] MEDS: FERROUS SULFATE 325 MG EC TABLET PO SCH (08:17)
[2021-12-01] MEDS: TraMADol HCL 50 MG TABLET PO SCH (08:17)
[2021-12-01 08:24] LABS: ALANINE AMINOTRANSFERASE 7 U/L (12-78); ALBUMIN 2.3 g/dL (3.4-5.0); ALKALINE PHOSPHATASE 73 U/L (46-116); ANION GAP 6 mmol/L (8-16); ASPARTATE AMINOTRANSFERASE 13 U/L (15-37); BILIRUBIN,TOTAL 0.4 mg/dL (0.1-1.0); CALCIUM, TOTAL 9.9 mg/dL (8.8-10.5); CARBON DIOXIDE 31 mmol/L (22-29); CHLORIDE 106 mmol/L (98-107); CREATININE 0.74 mg/dL (0.60-1.30); GLUCOSE,RANDOM 148 mg/dL (70-110); POTASSIUM 4.1 mmol/L (3.5-5.1); SODIUM SERUM 143 mmol/L (136-145); UREA NITROGEN, BLOOD 25 mg/dL (7-18)
[2021-12-01 08:33] LABS: GLOMERULAR FILTR. RATE CALC > 60 mL/min (>60)
[2021-12-01] MEDS ORDERED: MULTIVITAMINS WITH MINERALS, THERAPEUTIC TABLET PO ONE (11:00)
[2021-12-01] MEDS ORDERED: CHOL-35 PO (11:08)
[2021-12-01] MEDS ORDERED: DICL100G51 TP (11:08)
[2021-12-01] MEDS ORDERED: CLON0.2T PO (11:09)
[2021-12-01] MEDS ORDERED: SODIUM CHLORIDE 0.9% 250 ML IV ONE (11:45)
[2021-12-01] MEDS ORDERED: SODIUM CHLORIDE 0.9% 500 ML IV ONE (11:46)
[2021-12-01] MEDS: SODIUM CHLORIDE 0.45% 1,000 ML IV SCH (11:52)
[2021-12-01] MEDS: MONTELUKAST SODIUM 10 MG TABLET PO SCH (22:18)
[2021-12-01] MEDS: ATORVASTATIN CALCIUM 40 MG TABLET PO SCH (22:18)
[2021-12-02] MEDS: SODIUM CHLORIDE 0.45% 1,000 ML IV SCH ×2 (01:10→15:09)
[2021-12-02] MEDS: LEVOFLOXACIN 750 MG/D5% WATER 150 ML IV SCH (01:10)
[2021-12-02] MEDS: ALBUTEROL SULFATE 2.5 MG/0.5 ML NEB SOLUTION NEB SCH ×4 (03:09→20:14)
[2021-12-02] MEDS: IPRATROPIUM BROMIDE 0.5 MG/2.5 ML NEB SOLUTION NEB SCH ×4 (03:09→20:15)
[2021-12-02 04:12] VITALS: BP 140/99
[2021-12-02] MEDS: PANTOPRAZOLE SODIUM 40 MG DR TABLET PO SCH (06:30)
[2021-12-02 08:04] VITALS: BP 155/85
[2021-12-02 09:11] LABS: BASOPHILS % (AUTO) 0.3 % (0.0-2.0); EOSINOPHILS % (AUTO) 2.1 % (1.0-6.0); HEMATOCRIT 43.1 % (36-46); HEMOGLOBIN 13.8 g/dL (12.0-16.0); LYMPHOCYTES # (AUTO) 2.3 K/uL (1.0-4.8); LYMPHOCYTES % (AUTO) 21.5 % (22.0-44.0); MEAN CORPUSCULAR HEMOGLOBIN 25.8 pg (26.0-34.0); MEAN CORPUSCULAR HGB CONC 31.9 G/dL (31.0-37.0); MEAN CORPUSCULAR VOLUME 81 fL (80-100); MONOCYTES % (AUTO) 8.8 % (2.0-9.0); NEUTROPHILS # (AUTO) 7.3 K/uL (1.8-7.7); NEUTROPHILS % (AUTO) 67.3 % (40.0-70.0); PLATELET COUNT (AUTO) 237 K/uL (150-450); RED BLOOD CELL COUNT(AUTO) 5.34 MIL/uL (4.00-5.20); RED CELL DISTRIBUTION WIDTH 15.4 % (11.5-14.5)
[2021-12-02 09:24] LABS: ALANINE AMINOTRANSFERASE 8 U/L (12-78); ALBUMIN 2.7 g/dL (3.4-5.0); ALKALINE PHOSPHATASE 79 U/L (46-116); ANION GAP 3 mmol/L (8-16); ASPARTATE AMINOTRANSFERASE 14 U/L (15-37); BILIRUBIN,TOTAL 0.4 mg/dL (0.1-1.0); CALCIUM, TOTAL 10.5 mg/dL (8.8-10.5); CARBON DIOXIDE 31 mmol/L (22-29); CHLORIDE 104 mmol/L (98-107); CREATININE 0.69 mg/dL (0.60-1.30); GLUCOSE,RANDOM 83 mg/dL (70-110); POTASSIUM 4.6 mmol/L (3.5-5.1); SODIUM SERUM 138 mmol/L (136-145); TOTAL PROTEIN, SERUM 8.2 g/dL (6.4-8.2); UREA NITROGEN, BLOOD 23 mg/dL (7-18)
[2021-12-02 09:25] LABS: GLOMERULAR FILTR. RATE CALC > 60 mL/min (>60)
[2021-12-02] MEDS: CARVEDILOL 6.25 MG TABLET PO SCH ×2 (09:53→21:00)
[2021-12-02] MEDS: CHOLECALCIFEROL (VIT D3) 1,000 UNITS [25 MCG] TABLET PO SCH (09:54)
[2021-12-02] MEDS: DOCUSATE SODIUM 250 MG CAPSULE PO SCH ×2 (09:54→21:00)
[2021-12-02] MEDS: TraMADol HCL 50 MG TABLET PO SCH (09:54)
[2021-12-02] MEDS: FERROUS SULFATE 325 MG EC TABLET PO SCH (09:54)
[2021-12-02] MEDS: LUBIPROSTONE 24 MCG CAPSULE PO SCH ×2 (09:55→17:43)
[2021-12-02 12:20] VITALS: BP 154/98
[2021-12-02 16:01] VITALS: BP 118/58
[2021-12-02 17:56] VITALS: BP 160/98
[2021-12-02] MEDS: CloNIDine HCL 0.1 MG TABLET PO PRN (18:44)
[2021-12-02 20:00] VITALS: BP 107/60
[2021-12-02] MEDS: ATORVASTATIN CALCIUM 40 MG TABLET PO SCH (21:00)
[2021-12-02] MEDS: MONTELUKAST SODIUM 10 MG TABLET PO SCH (21:00)
[2021-12-02] MEDS ORDERED: SODIUM CHLORIDE 0.9% 0 ML IV ONE (23:56)
[2021-12-03] MEDS: LEVOFLOXACIN 750 MG/D5% WATER 150 ML IV SCH (00:02)
[2021-12-03] MEDS: ALBUTEROL SULFATE 2.5 MG/0.5 ML NEB SOLUTION NEB SCH ×2 (02:58→08:29)
[2021-12-03] MEDS: IPRATROPIUM BROMIDE 0.5 MG/2.5 ML NEB SOLUTION NEB SCH ×2 (02:58→08:29)
[2021-12-03 04:40] VITALS: BP 144/76
[2021-12-03] MEDS: SODIUM CHLORIDE 0.45% 1,000 ML IV SCH (06:16)
[2021-12-03 06:20] LABS: BASOPHILS % (AUTO) 0.4 % (0.0-2.0); EOSINOPHILS % (AUTO) 4.2 % (1.0-6.0); HEMATOCRIT 39.2 % (36-46); HEMOGLOBIN 12.7 g/dL (12.0-16.0); LYMPHOCYTES % (AUTO) 21.2 % (22.0-44.0); MEAN CORPUSCULAR HEMOGLOBIN 25.8 pg (26.0-34.0); MEAN CORPUSCULAR HGB CONC 32.4 G/dL (31.0-37.0); MEAN CORPUSCULAR VOLUME 80 fL (80-100); MONOCYTES # (AUTO) 0.9 K/uL (0.1-1.0); MONOCYTES % (AUTO) 9.7 % (2.0-9.0); NEUTROPHILS # (AUTO) 6.1 K/uL (1.8-7.7); NEUTROPHILS % (AUTO) 64.5 % (40.0-70.0); PLATELET COUNT (AUTO) 218 K/uL (150-450); RED BLOOD CELL COUNT(AUTO) 4.92 MIL/uL (4.00-5.20); RED CELL DISTRIBUTION WIDTH 14.8 % (11.5-14.5)
[2021-12-03] MEDS: PANTOPRAZOLE SODIUM 40 MG DR TABLET PO SCH (06:30)
[2021-12-03 06:39] LABS: ALANINE AMINOTRANSFERASE 7 U/L (12-78); ALBUMIN 2.4 g/dL (3.4-5.0); ALKALINE PHOSPHATASE 71 U/L (46-116); ANION GAP 1 mmol/L (8-16); ASPARTATE AMINOTRANSFERASE 14 U/L (15-37); BILIRUBIN,TOTAL 0.4 mg/dL (0.1-1.0); CARBON DIOXIDE 33 mmol/L (22-29); CHLORIDE 102 mmol/L (98-107); GLUCOSE,RANDOM 72 mg/dL (70-110); POTASSIUM 4.3 mmol/L (3.5-5.1); SODIUM SERUM 136 mmol/L (136-145); TOTAL PROTEIN, SERUM 7.3 g/dL (6.4-8.2); UREA NITROGEN, BLOOD 17 mg/dL (7-18)
[2021-12-03 06:40] LABS: GLOMERULAR FILTR. RATE CALC > 60 mL/min (>60)
[2021-12-03] MEDS ORDERED: LEVO750T68 PO (07:47)
[2021-12-03 08:24] VITALS: BP 145/77
[2021-12-03] MEDS: LUBIPROSTONE 24 MCG CAPSULE PO SCH (10:09)
[2021-12-03] MEDS: CHOLECALCIFEROL (VIT D3) 1,000 UNITS [25 MCG] TABLET PO SCH (10:09)
[2021-12-03] MEDS: FERROUS SULFATE 325 MG EC TABLET PO SCH (10:09)
[2021-12-03] MEDS: TraMADol HCL 50 MG TABLET PO SCH (10:09)
[2021-12-03] MEDS: CARVEDILOL 6.25 MG TABLET PO SCH (10:09)
[2021-12-03] MEDS: DOCUSATE SODIUM 250 MG CAPSULE PO SCH (10:10)
== END 2021-12-03 15:00 | disposition home health service (06) | DRG 70 ==
LOC: EMS 16:47 → 5S 20:00 → UNDOADMIN 20:00 → 6N 11-29 20:00 → 6S 11-29 22:16 → 5S 11-30 01:38 → 6S 12-02 17:55
PROVIDERS: ADMIT Hospitalist; ATTEND Hospitalist
DX: G93.49 Other encephalopathy (principal); E43 Unspecified severe protein-calorie malnutrition; S80.912A Unspecified superficial injury of left knee, initial encounter; F03.90 Unspecified dementia, unspecified severity, without behavioral disturbance, psychotic disturbance, mood disturbance, and anxiety; J44.9 Chronic obstructive pulmonary disease, unspecified; I11.0 Hypertensive heart disease with heart failure; Z20.822 Contact with and (suspected) exposure to COVID-19; M19.90 Unspecified osteoarthritis, unspecified site; X58.XXXA Exposure to other specified factors, initial encounter; E78.5 Hyperlipidemia, unspecified; I50.9 Heart failure, unspecified; R31.9 Hematuria, unspecified; E78.00 Pure hypercholesterolemia, unspecified; Z88.0 Allergy status to penicillin; Z88.2 Allergy status to sulfonamides; Z88.1 Allergy status to other antibiotic agents; Z88.8 Allergy status to other drugs, medicaments and biological substances; Z79.899 Other long term (current) drug therapy; Z79.82 Long term (current) use of aspirin; Y93.89 Activity, other specified; Y92.89 Other specified places as the place of occurrence of the external cause; Y99.8 Other external cause status; Z68.28 Body mass index [BMI] 28.0-28.9, adult
CPT/HCPCS: 51702; 70450; 71045; 80053; 81001; 85025; 85610; 85651; 85730; 86140; 87040; 87070; 92526; 92610; 93306; 94640; 99285; J0360; J1956; J2270; J2405; J3370; J7040; J7050; 36415-L1; 36415-TC; J7613